=== PATIENT | male | born 1985 | race Caucasian/White ===

== ENCOUNTER 2020-07-23 08:06 | Outpatient (REF) | payer OTHER, SELFPAY ==
[2020-07-23 09:36] LABS: Alanine Aminotransferase 35 U/L (0-40); Albumin Level 4.2 g/dL (3.5-5.0); Alkaline Phosphatase 54 U/L (39-117); Anion Gap 13 (12-20); Aspartate Amino Transferase 25 U/L (5-37); Bilirubin Total 0.9 mg/dL (0.0-1.0); Blood Urea Nitrogen 24 mg/dL (9-16); Calcium 9.1 mg/dL (8.4-10.2); Carbon Dioxide 26 mmol/L (22-29); Chloride 106 mmol/L (96-108); Cholesterol 166 mg/dL; Estimated Glomerular Filt Rate > 60; Glucose Fasting 98 mg/dL (60-99); HDL Cholesterol 53 mg/dL; LDL Cholesterol Calculated 99 mg/dl; Potassium 4.7 mmol/L (3.3-5.1); Sodium 140 mmol/L (135-145); Total Protein 6.9 g/dL (6.5-8.0); Triglycerides 71 mg/dL
[2020-07-23 09:57] LABS: TSH reflex Free T4 1.04 uIU/mL (0.32-4.0)
== END 2020-07-23 08:07 | disposition home or self-care (01) ==
LOC: HO.LAB 08:06
PROVIDERS: Visit Provider Nurse Practitioner Family
DX: Z00.00 Encounter for general adult medical examination without abnormal findings (principal)
CPT/HCPCS: 36415; 80053; 80061; 84443

== ENCOUNTER 2021-07-29 09:27 | Outpatient (REF) | payer OTHER, SELFPAY ==
[2021-07-29 11:17] LABS: Appearance Urine CLEAR; Color Urine YELLOW; Glucose Urine UA NEG (NEG); Leukocyte Esterase Urine NEG (NEG); Nitrite Urine NEG (NEG); PH 6.5 (5.0-8.0); Specific Gravity - Urine 1.025 (1.005-1.025); Urine Blood NEG (NEG); Urine Ketones NEG (NEG); Urine Protein NEG (NEG-TRACE)
[2021-07-29 11:25] LABS: Alanine Aminotransferase 35 U/L (0-40); Albumin Level 4.3 g/dL (3.5-5.0); Alkaline Phosphatase 57 U/L (39-117); Anion Gap 10 (12-20); Aspartate Amino Transferase 23 U/L (5-37); Bilirubin Total 0.9 mg/dL (0.0-1.0); Blood Urea Nitrogen 16 mg/dL (9-16); Calcium 9.5 mg/dL (8.4-10.2); Carbon Dioxide 29 mmol/L (22-29); Chloride 107 mmol/L (96-108); Cholesterol 158 mg/dL; Estimated Glomerular Filt Rate > 60; Glucose Fasting 99 mg/dL (60-99); HDL Cholesterol 46 mg/dL; LDL Cholesterol Calculated 98 mg/dl; Potassium 4.2 mmol/L (3.3-5.1); Sodium 142 mmol/L (135-145); Total Protein 7.3 g/dL (6.5-8.0); Triglycerides 70 mg/dL
[2021-07-29 11:48] LABS: TSH reflex Free T4 1.04 uIU/mL (0.32-4.0)
== END 2021-07-29 09:28 | disposition home or self-care (01) ==
LOC: HO.HMGCLDS 09:27
PROVIDERS: Visit Provider Nurse Practitioner Family
DX: Z00.00 Encounter for general adult medical examination without abnormal findings (principal); Z13.220 Encounter for screening for lipoid disorders; Z13.9 Encounter for screening, unspecified
CPT/HCPCS: 36415; 80053; 80061; 81003; 84443

== ENCOUNTER 2022-02-17 10:52 | Outpatient (REF) | payer OTHER, SELFPAY ==
--- NOTE | ~2022-02-17 | XR_ITS ---
EXAMINATION: XR ANKLE, RIGHT CLINICAL INFORMATION: Right ankle sprain COMPARISON: February 16, 2020 TECHNIQUE: AP, lateral, and mortise views of the right ankle. FINDINGS: The bones and soft tissues are normal. No fracture. Alignment is anatomic. Joint spaces are maintained. No joint effusion. XR/XR ankle RT min 3V IMPRESSION: Normal right ankle.
== END 2022-02-17 10:53 | disposition home or self-care (01) ==
LOC: HO.HMGCX 10:52
PROVIDERS: PCP Nurse Practitioner Family; Visit Provider Physician Assistant Medical
DX: S96.911A Strain of unspecified muscle and tendon at ankle and foot level, right foot, initial encounter (principal); S93.401A Sprain of unspecified ligament of right ankle, initial encounter
CPT/HCPCS: 73610

== ENCOUNTER 2022-04-28 09:46 | Outpatient (REF) | payer OTHER, SELFPAY ==
[2022-04-28 11:10] LABS: MANUAL DIFF FLAG NO
[2022-04-28 11:18] LABS: Basophils Percent Auto 0.5 % (0-2); Eosinophils Absolute Auto 0.2 X10*3/uL (0.0-0.4); Eosinophils Percent Auto 2.5 % (0-4); Hematocrit 48.1 % (42.0-52.0); Hemoglobin 15.5 g/dl (14.0-18.0); Imm Gran Abs Auto 0.01 X10*3/uL (0.00-0.03); Imm Gran Pct Auto 0.2 % (0.0-0.4); Lymphocytes Absolute Auto 2.7 X10*3/uL (1.2-4.9); Lymphocytes Percent Auto 41.5 % (20-40); Mean Corpuscular HGB Conc 32.2 g/dl (31.0-36.0); Mean Corpuscular Hemoglobin 27.8 pg (27.0-33.0); Mean Corpuscular Volume 86.2 fL (80.0-98.0); Mean Platelet Volume 11.4 fL (9.4-12.4); Monocytes Absolute Auto 0.6 X10*3/uL (0.1-1.2); Neutrophils Percent Auto 46.3 % (45-73); Platelet Count 179 X10*3/uL (160-400); Red Blood Count 5.58 X10*6/uL (4.60-5.80); Red Cell Distribution Width 13.2 % (11.0-16.0); White Blood Count 6.4 X10*3/uL (4.8-10.8)
[2022-04-28 11:36] LABS: Alanine Aminotransferase 30 U/L (0-40); Albumin Level 3.9 g/dL (3.5-5.0); Alkaline Phosphatase 41 U/L (39-117); Anion Gap 12 (12-20); Aspartate Amino Transferase 24 U/L (5-37); Bilirubin Total 1.6 mg/dL (0.0-1.0); Blood Urea Nitrogen 16 mg/dL (9-16); Carbon Dioxide 27 mmol/L (22-29); Chloride 105 mmol/L (96-108); Cholesterol 156 mg/dL; Estimated Glomerular Filt Rate > 60; Glucose Fasting 86 mg/dL (60-99); HDL Cholesterol 62 mg/dL; LDL Cholesterol Calculated 82 mg/dl; Potassium 4.4 mmol/L (3.3-5.1); Sodium 140 mmol/L (135-145); Total Protein 6.5 g/dL (6.5-8.0); Triglycerides 62 mg/dL
[2022-04-28 11:37] LABS: Appearance Urine Clear; Color Urine Yellow; Glucose Urine UA Negative (Negative); Leukocyte Esterase Urine Negative (Negative); Nitrite Urine Negative (Negative); Specific Gravity - Urine 1.025 (1.005-1.025); Urine Blood Negative (Negative); Urine Ketones Negative (Negative); Urine Protein Negative (Neg-Trace)
[2022-04-28 11:59] LABS: TSH reflex Free T4 0.77 uIU/mL (0.32-4.0)
[2022-04-30 13:36] LABS: Transglutaminase IgA <1.0 U/mL
[2022-05-03 15:42] LABS: Endomysial IgA Antibody Negative (Negative)
== END 2022-04-28 09:47 | disposition home or self-care (01) ==
LOC: HO.HMGCLDS 09:46
PROVIDERS: PCP Nurse Practitioner Family; Visit Provider Nurse Practitioner Family
DX: R74.8 Abnormal levels of other serum enzymes (principal); R14.0 Abdominal distension (gaseous); R19.7 Diarrhea, unspecified
CPT/HCPCS: 36415; 80053; 80061; 81003; 84443; 85025; 86231; 86364

== ENCOUNTER 2022-10-13 09:22 | Outpatient (REF) | payer MEDICAID, SELFPAY ==
[2022-10-13 11:06] LABS: MANUAL DIFF FLAG NO
[2022-10-13 11:13] LABS: Basophils Percent Auto 0.5 % (0-2); Eosinophils Absolute Auto 0.2 X10*3/uL (0.0-0.4); Eosinophils Percent Auto 2.5 % (0-4); Hematocrit 54.1 % (42.0-52.0); Hemoglobin 16.8 g/dl (14.0-18.0); Imm Gran Abs Auto 0.02 X10*3/uL (0.00-0.03); Imm Gran Pct Auto 0.3 % (0.0-0.4); Lymphocytes Absolute Auto 1.8 X10*3/uL (1.2-4.9); Lymphocytes Percent Auto 29.9 % (20-40); Mean Corpuscular HGB Conc 31.1 g/dl (31.0-36.0); Mean Corpuscular Hemoglobin 28.5 pg (27.0-33.0); Mean Corpuscular Volume 91.7 fL (80.0-98.0); Mean Platelet Volume 10.9 fL (9.4-12.4); Monocytes Absolute Auto 0.6 X10*3/uL (0.1-1.2); Monocytes Percent Auto 9.8 % (2-11); Neutrophils Absolute Auto 3.4 x10*3/uL (2.0-8.3); Platelet Count 271 X10*3/uL (160-400); Red Cell Distribution Width 13.2 % (11.0-16.0); White Blood Count 5.9 X10*3/uL (4.8-10.8)
[2022-10-13 11:35] LABS: Alanine Aminotransferase 53 U/L (0-40); Albumin Level 3.8 g/dL (3.5-5.0); Alkaline Phosphatase 35 U/L (39-117); Anion Gap 11 (12-20); Aspartate Amino Transferase 41 U/L (5-37); Bilirubin Total 1.2 mg/dL (0.0-1.0); Blood Urea Nitrogen 11 mg/dL (9-16); Calcium 8.4 mg/dL (8.4-10.2); Carbon Dioxide 26 mmol/L (22-29); Chloride 106 mmol/L (96-108); Estimated Glomerular Filt Rate > 60; Glucose Random 87 mg/dL (60-115); Potassium 5.1 mmol/L (3.3-5.1); Sodium 138 mmol/L (135-145); Total Protein 6.1 g/dL (6.5-8.0)
[2022-10-13 11:55] LABS: TSH reflex Free T4 0.76 uIU/mL (0.32-4.0)
[2022-10-16 14:47] LABS: Transglutaminase Ab IgG <1.0 U/mL; Transglutaminase IgA <1.0 U/mL
[2022-10-20 11:33] LABS: Endomysial IgA Antibody Negative (Negative)
== END 2022-10-13 09:23 | disposition home or self-care (01) ==
LOC: HO.HMGCLDS 09:22
PROVIDERS: PCP Nurse Practitioner Family; Visit Provider Nurse Practitioner Family
DX: R14.0 Abdominal distension (gaseous) (principal)
CPT/HCPCS: 36415; 80053; 84443; 85025; 86231; 86364

== ENCOUNTER 2023-01-08 12:51 | Outpatient (AMB) | payer MEDICAID, SELFPAY ==
--- NOTE | 2023-01-08 13:36 | MHC.OFFWIV ---
Intake Vital Signs 01/08/23 13:40 BP 130/80 Blood Pressure Location Rt brachial Position Sitting Pulse 67 Pulse Source Pulse Oximeter Temp 97.8 F Temp Source Temporal Artery Scan Pulse Oximetry (%) 98 Oxygen Delivery Method Room Air Intake Visit Reasons: EST/left side pain Intake Note: Patient here for left sided pain for about 1 week. pt states it feels like a burning sensation. Patient Tobacco Use Status: Never used Tobacco Allergies penicillin V Allergy (Unknown, Verified 01/08/23 13:40) Rash Do you need a note to return to daycare/school/sports/work: Yes HPI EST/left side pain HPI Details 37-year-old male presents to the office for a sick visit. Patient is reporting symptoms of intermittent abdominal pain. Pain is mostly on the left side. No nausea or vomiting. Occasional belching. No fever or chills. PFSH Medical History Chronic SI joint pain Surgical History History of knee surgery History of wisdom tooth extraction Family History Father HTN (hypertension) Mother Diabetes mellitus Maternal Grandmother History of heart attack Maternal Grandfather Diabetes mellitus Paternal Grandfather Unknown family medical history Paternal Grandmother Unknown family medical history Paternal Uncle Cancer Brother No problems noted. Brother No problems noted. Son No problems noted. Social History Housing: House Alcohol intake: current Alcohol intake frequency: holidays/special occasions only Patient Tobacco Use Status: Never used Tobacco e-Cigarette/Vaping Use: Never Used Second Hand Smoke Exposure: No service: No Current occupational status: employed Current occupational exposures/hazards: No Cognitive needs: No Hearing needs: No Vision needs: No Physical Exam Vital Signs: Last Vital Signs Temp 97.8 F 01/08/23 13:40 Pulse 67 01/08/23 13:40 BP 130/80 01/08/23 13:40 Pulse Ox 98 01/08/23 13:40 Oxygen Delivery Method Room Air 01/08/23 13:40 Const General: cooperative and healthy appearing Nutritional Appearance: well nourished Orientation/consciousness: patient oriented x3 Limitations: no limitations HEENT Head: Yes normal to inspection Eyes General: appearance normal, both eyes and all related structures Neck Neck: Yes normal visual inspection Chest Chest palpation & inspection: normal palpation of entire chest wall Resp Effort & Inspection: normal respiratory effort Neuro General: patient oriented x3 Assessment & Plan Assessment & Plan (1) Abdominal pain: Code(s): R10.9 - Unspecified abdominal pain Plan: Trial of PPI given. If symptoms do not improve to follow-up here. Coding Level of Care Code Est Pt Level 3 (34987) Diagnoses Abdominal pain R10.9
[2023-01-08 13:40] VITALS: BP 130/80; PULSE 67; TEMP 36.6; O2SAT 98
== END 2023-01-08 14:04 | disposition home or self-care (01) ==
PROVIDERS: PCP Nurse Practitioner Family; Visit Provider Internal Medicine
DX: R10.9 Unspecified abdominal pain (principal)
CPT/HCPCS: 99213

== ENCOUNTER 2023-02-12 15:16 | Outpatient (AMB) | payer MEDICAID, SELFPAY ==
[2023-02-12 15:22] VITALS: BP 136/88; PULSE 62; O2SAT 97; BMI 33.3
--- NOTE | 2023-02-12 15:22 | A.OFFPC_ITS ---
Vital Signs 02/12/23 15:22 Height 5 ft 9 in Weight 225 lb 8 oz BMI 33.3 BP 136/88 Blood Pressure Location Lt brachial Position Sitting Pulse 62 Pulse Source Pulse Oximeter Pulse Oximetry (%) 97 Oxygen Delivery Method Room Air Intake Visit Reasons: 4 month follow-up Allergies penicillin V Allergy (Unknown, Verified 02/12/23 15:24) Rash Medication List - Last Reconciled 02/12/23 by NICHO Barahona cholecalciferol (vitamin D3) 50 mcg PO DAILY omega-3 fatty acids (Fish Oil Concentrate) 1,000 mg PO DAILY Tobacco use date assessed: 10/11/22 Dental Screening Dental Screen Date: 02/12/23 Did you have a dental visit in the last 12 months?: Yes Did you have a dental problem in the last 6 months where you did not have access to dental care?: No Was dental information given to patient?: Patient has dentist HPI 4 month follow-up HPI Details Pt's liver enzymes were noted to be elevated. Pt was taking pre-workout which he has stopped. Will order US and hepatitis screen. Denies fever, chills, and abdominal pain. [facility] Medical History Chronic SI joint pain Surgical History History of knee surgery History of wisdom tooth extraction Family History Father HTN (hypertension) Mother Diabetes mellitus Maternal Grandmother History of heart attack Maternal Grandfather Diabetes mellitus Paternal Grandfather Unknown family medical history Paternal Grandmother Unknown family medical history Paternal Uncle Cancer Brother No problems noted. Brother No problems noted. Son No problems noted. Social History Housing: House Alcohol intake: current Alcohol intake frequency: holidays/special occasions only Patient Tobacco Use Status: Never used Tobacco e-Cigarette/Vaping Use: Never Used Second Hand Smoke Exposure: No service: No Current occupational status: employed Current occupational exposures/hazards: No Cognitive needs: No Hearing needs: No Vision needs: No Questionnaire Thrive Questionnaire Date Thrive assessed: 07/24/21 ZAHIDA-7 AMB Questionnaire ZAHIDA-7 Date ZAHIDA - 7 assessed: 07/24/21 Source: Developed by Drs. Tristan Beard, Gabriela Urbano, Rajat Neumann and colleagues, with an educational karishma from [employer]. Review of Systems Const Reports as per HPI Physical exam (Primary Care) Vital Signs: Last Vital Signs Pulse 62 02/12/23 15:22 BP 136/88 02/12/23 15:22 Pulse Ox 97 02/12/23 15:22 Oxygen Delivery Method Room Air 02/12/23 15:22 BMI result Body Mass Index 33.3 Tobacco/Smoking Status: Tobacco use Status Tobacco use date assessed 10/11/22 02/12/23 15:26 Patient Tobacco Use Status Never used Tobacco 02/12/23 15:26 e-Cigarette/Vaping Use Never Used 02/12/23 15:26 Thrive Assessment: Date of Thrive Assessment Date Thrive assessed 07/24/21 02/12/23 15:26 Const General: cooperative Nutritional Appearance: obese Orientation/consciousness: patient oriented x3 Resp Effort & Inspection: normal respiratory effort Auscultation: clear to auscultation bilaterally Cardio Rate: regular rate Rhythm: regular rhythm Heart sounds: S1 normal heart sound present, S2 normal heart sound present and no murmurs GI Inspection: Yes normal to inspection Palpation (GI): Soft to palpation, nontender and no guarding Auscultation: normal bowel sounds Neuro General: patient oriented x3 Psych Appearance: grossly normal Mental Status: mental status grossly normal Speech and movement: Normal speech and movement present Affect: normal affect Attitude: cooperative Thought process: Normal thought process present Thought content: Normal thought content present Insight: Good insight present (Psych) Judgement: Good judgement present (Psych) Assessment and Plan Assessment & Plan (1) Elevated liver enzymes: Code(s): R74.8 - Abnormal levels of other serum enzymes Plan: Labs and US ordered Plan The patient agreed to the use of a certified medical coder for this encounter. Scribed for NICHO Lozoya by Fannie Richardson certified medical coder, on 02/12/2023 at 15:35 EST. Orders: Orders Comprehensive Met. Panel Today R74.8 - Abnormal levels of other serum enzymes Hepatitis A,B,C Profile Today R74.8 - Abnormal levels of other serum enzymes US abdomen complete Today R74.8 - Abnormal levels of other serum enzymes Coding Level of Care Code Est Pt Level 3 (23587) Diagnoses Elevated liver enzymes R74.8
== END 2023-02-12 16:33 | disposition home or self-care (01) ==
PROVIDERS: Visit Provider Nurse Practitioner Family
DX: R74.8 Abnormal levels of other serum enzymes (principal)
CPT/HCPCS: 99213

== ENCOUNTER 2023-03-05 09:59 | Outpatient (REF) | payer MEDICAID, SELFPAY ==
--- NOTE | ~2023-03-05 | US_ITS ---
EXAMINATION: US ABDOMEN COMPLETE CLINICAL INFORMATION: Elevated liver enzymes. COMPARISON: Ultrasound abdomen 04/07/2018 and 03/29/2017. TECHNIQUE: Real-time imaging of the abdominal viscera. FINDINGS: PANCREAS: Normal. ABDOMINAL AORTA: The proximal, mid, and distal segments are normal in caliber. INFERIOR VENA CAVA: Visualized portions are normal. LIVER: Normal. The liver is normal in size. The liver contour is normal. Parenchymal echogenicity is normal. No focal hepatic lesion. There is no intrahepatic biliary duct dilatation seen. GALLBLADDER: Surgically absent. COMMON BILE DUCT: Normal in caliber measuring 0.4 cm in diameter. RIGHT KIDNEY: Normal. No hydronephrosis. No renal calculi or focal parenchymal lesions. The kidney measures 13.0 cm in maximum dimension. LEFT KIDNEY: Normal. No hydronephrosis. No renal calculi or focal parenchymal lesions. The kidney measures 11.5 cm in maximum dimension. SPLEEN: Normal. The spleen measures 12.1 cm in maximum dimension. FREE FLUID: None. US/US abdomen complete IMPRESSION: Normal exam. The gallbladder has been surgically removed.
[2023-03-05 14:00] LABS: Alanine Aminotransferase 35 U/L (0-40); Alkaline Phosphatase 42 U/L (39-117); Anion Gap 8 (12-20); Aspartate Amino Transferase 26 U/L (5-37); Bilirubin Total 1.1 mg/dL (0.0-1.0); Blood Urea Nitrogen 12 mg/dL (9-16); Calcium 9.5 mg/dL (8.4-10.2); Carbon Dioxide 29 mmol/L (22-29); Chloride 106 mmol/L (96-108); Estimated Glomerular Filt Rate > 60; Glucose Random 85 mg/dL (60-115); Potassium 4.4 mmol/L (3.3-5.1); Sodium 139 mmol/L (135-145)
[2023-03-06 04:16] LABS: HBS Num1 16.31 mIU/mL (0-7.99); HBc Num1 0.06 S/CO (0.00-0.79); HBsAGNum1 0.29 S/CO (0.00-0.99); Hepatitis A Antibody IgM 0.16 Index (0-0.79); Hepatitis B Core Antibody Nonreactive (Nonreactive); Hepatitis B Surface Antigen Negative (Negative); ~HepC Num1 0.06 S/CO (0.00-0.79); ~Hepatitis A Antibody IgM Nonreactive (Nonreactive); ~Hepatitis B Surface Antibody REACTIVE (Nonreactive); ~Hepatitis C Antibody Nonreactive (Nonreactive)
== END 2023-03-05 10:00 | disposition home or self-care (01) ==
LOC: HO.HMGCX 09:59
PROVIDERS: PCP Nurse Practitioner Family; Visit Provider Nurse Practitioner Family
DX: R74.8 Abnormal levels of other serum enzymes (principal)
CPT/HCPCS: 36415; 76700; 80053; 86704; 86706; 86709; 86803; 87340

== ENCOUNTER 2024-01-14 09:08 | Outpatient (AMB) | payer MEDICAID, SELFPAY ==
--- NOTE | 2024-01-14 09:11 | A.OFFPC_ITS ---
Vital Signs 01/14/24 09:16 Height 5 ft 9 in Weight 240 lb BMI 35.4 BP 126/82 Blood Pressure Location Rt brachial Position Sitting Pulse 61 Pulse Source Pulse Oximeter Pulse Oximetry (%) 97 Oxygen Delivery Method Room Air Intake Visit Reasons: Annual PE Intake Note: Patient here for physical exam. Allergies penicillin V Allergy (Unknown, Verified 01/14/24 09:16) Rash Tobacco use date assessed: 01/14/24 Dental Screening Dental Screen Date: 02/12/23 HPI Annual PE HPI Details Pt is here for a PE. Will order labs. PFSH Medical History Chronic SI joint pain Surgical History History of knee surgery History of wisdom tooth extraction Family History Father HTN (hypertension) Mother Diabetes mellitus Maternal Grandmother History of heart attack Maternal Grandfather Diabetes mellitus Paternal Grandfather Unknown family medical history Paternal Grandmother Unknown family medical history Paternal Uncle Cancer Brother No problems noted. Brother No problems noted. Son No problems noted. Social History Housing: House Alcohol intake: current Alcohol intake frequency: holidays/special occasions only Patient Tobacco Use Status: Never used Tobacco e-Cigarette/Vaping Use: Never Used Second Hand Smoke Exposure: No service: No Current occupational status: employed Current occupational exposures/hazards: No Cognitive needs: No Hearing needs: No Vision needs: No Questionnaire PHQ-9 Over the last 2 weeks, how often have you been bothered by any of the following problems? 1. Little interest or pleasure in doing things: not at all 2. Feeling down, depressed, or hopeless: not at all 3. Trouble falling or staying asleep, or sleeping too much: not at all 4. Feeling tired or having little energy: not at all 5. Poor appetite or overeating: not at all 6. Feeling bad about yourself - or that you are a failure or have let yourself or your family down: not at all 7. Trouble concentrating on things, such as reading the newspaper or watching television: not at all 8. Moving or speaking so slowly that other people could have noticed. Or the opposite - being so fidgety or restless that you have been moving around a lot more than usual: not at all 9. Thoughts that you would be better off or of hurting yourself in some way: not at all Total score: 0 Depression Screening Interpretation: Negative Depression Screening Done: Yes 11618 - PHQ-9 Billing: Yes Source: Developed by Drs. Tristan Beard, Gabriela Urbano, Rajat Neumann and colleagues, with an educational karishma from [employer]. Thrive Questionnaire Date Thrive assessed: 01/14/24 I am a: Patient What is your living situation today?: I have a steady place to live Within the past 12 months, did the food you bought not last and you didn't have the money to get more?: Never true Within the past 12 months, did you worry whether your food would run out before you got money to buy more?: Never true Do you have trouble paying for medicines?: No Do you have trouble getting transportation to medical appointments?: No Do you have trouble paying your heating and electricity bill?: No Do you have trouble taking care of your child, family member or friend?: No Do you have trouble with day-to-day activities such as bathing, preparing meals, shopping, managing finances, etc.?: No Are you currently unemployed and looking for a job?: No Are you interested in more education?: No Please select the resources that you would like help with: Housing/Jail Currently or been in a relationship where the following occur: No concerns reported THRIVE Score: 0 AUDIT C Alcohol Use Questionnaire (AUDIT-C) 1. How often do you have a drink containing alcohol?: Monthly or less 2. How many drinks containing alcohol do you have on a typical day when you are drinking?: 1 or 2 3. How often do you have six or more drinks on one occasion?: Less than monthly Total Score: 2 ZAHIDA-7 AMB Questionnaire ZAHIDA-7 Date ZAHIDA - 7 assessed: 01/14/24 Feeling nervous, anxious, or on edge: 0 = Not at all Not being able to stop or control worryin = Not at all Worrying too much about different things: 0 = Not at all Trouble relaxin = Not at all Being so restless that it is hard to sit still: 0 = Not at all Becoming easily annoyed or irritable: 0 = Not at all Feeling afraid as if something awful might happen: 0 = Not at all Total ZAHIDA-7 score (0-4 normal; 5-9 mild; 10-14 moderate; 15-21 severe): 0 Source: Developed by Drs. Tristan Beard, Gabriela Urbano, Rajat Neumann and colleagues, with an educational karishma from [employer]. ZAHIDA-7 Assessment Billing ZAHIDA-7 Assessment Tool: ZAHIDA-7 Assessment 72730 Review of Systems Const Denies chills and Denies fever(s) Eyes Denies blurry vision ENT Denies vertigo, Denies dizziness and Denies sore throat Card Denies chest pain at rest, Denies chest pain with activity, Denies diaphoresis, Denies dyspnea and Denies dyspnea on exertion Resp Denies cough, Denies dyspnea, Denies dyspnea on exertion and Denies wheezing GI Denies abdominal pain, Denies melena, Denies hematochezia, Denies constipation, Denies diarrhea and Denies loose stools Denies hematuria Musc Denies numbness and Denies tingling Skin/Breast Denies lesions Neuro Denies vertigo, Denies dizziness, Denies numbness and Denies tingling Psych Denies anxiety, Denies depression, Denies homicidal ideation, Denies suicidal ideation and Denies other (substance abuse) Aller/Immun Denies wheezing Physical exam (Primary Care) Vital Signs: Last Vital Signs Pulse 61 01/14/24 09:16 BP 126/82 01/14/24 09:16 Pulse Ox 97 01/14/24 09:16 Oxygen Delivery Method Room Air 01/14/24 09:16 BMI result Body Mass Index 35.4 Tobacco/Smoking Status: Tobacco use Status Tobacco use date assessed 01/14/24 01/14/24 09:15 Patient Tobacco Use Status Never used Tobacco 01/14/24 09:15 e-Cigarette/Vaping Use Never Used 01/14/24 09:15 PHQ-9: PHQ-9 Score PHQ-9: Total score 0 01/14/24 09:25 Depression Screening Interpretation: Negative Thrive Assessment: Date of Thrive Assessment Date Thrive assessed 01/14/24 01/14/24 09:15 Currently or been in a relationship where the following occur: No concerns reported Const General: cooperative Nutritional Appearance: well nourished Orientation/consciousness: patient oriented x3 HENMT Head: Yes normal to inspection, Yes normocephalic and Yes atraumatic Ears: TM's normal bilaterally Eyes General: appearance normal, both eyes and all related structures Alignment and Position: alignment normal and position normal Neck Neck: Yes normal visual inspection and Yes no lymphadenopathy Thyroid: Thyroid normal Resp Effort & Inspection: normal respiratory effort Auscultation: clear to auscultation bilaterally Cardio Rate: regular rate Rhythm: regular rhythm Heart sounds: S1 normal heart sound present, S2 normal heart sound present and no murmurs GI Palpation (GI): Soft to palpation and nontender Auscultation: normal bowel sounds Male General Exam: Yes normal external exam Penis: normal penis Scrotum: scrotum normal, testes descended bilaterally and no inguinal hernias Testes: no testicular mass Skin Rashes: no rashes Neuro General: patient oriented x3, moves all extremities, no focal motor deficits and deep tendon reflexes 2+ bilaterally Romberg Test: Negative Psych Appearance: grossly normal Mental Status: mental status grossly normal Speech and movement: Normal speech and movement present Affect: normal affect Attitude: cooperative Thought process: Normal thought process present Thought content: Normal thought content present Insight: Good insight present (Psych) Judgement: Good judgement present (Psych) Assessment and Plan Assessment & Plan (1) Physical exam: Code(s): Z00.00 - Encounter for general adult medical examination without abnormal findings Plan: Labs ordered (2) Weight gain: Code(s): R63.5 - Abnormal weight gain Plan: will check T level. Pt reports loss of muscle tone as well. Plan The patient agreed to the use of a director of graduate medical education for this encounter. Scribed for NICHO Lozoya by Fannie Richardson director of graduate medical education, on 01/14/2024 at 09:25 EST. Orders: Orders Comprehensive [place]. Panel Fast Today Z00.00 - Encounter for general adult medical examination without abnormal findings Testosterone, Free/Total Today R63.5 - Abnormal weight gain Complete Blood Count Auto Diff Today Z00.00 - Encounter for general adult medical examination without abnormal findings TSH reflex Free T4 Today Z00.00 - Encounter for general adult medical examination without abnormal findings UA CC w/rflx Micro + Cult Today Z00.00 - Encounter for general adult medical examination without abnormal findings Lipid Panel Today Z00.00 - Encounter for general adult medical examination without abnormal findings Coding Level of Care Code Est Pt Prev Care 40-64y(73886) Diagnoses Physical exam Z00.00 Weight gain R63.5 Additional Codes ZAHIDA-7 Assessment Billing - ZAHIDA-7 Assessment Tool: ZAHIDA-7 Assessment [id number] ([id number])
[2024-01-14 09:16] VITALS: BP 126/82; PULSE 61; O2SAT 97; BMI 35.4
== END 2024-01-14 09:34 | disposition home or self-care (01) ==
PROVIDERS: PCP Nurse Practitioner Family; Visit Provider Nurse Practitioner Family
DX: Z00.00 Encounter for general adult medical examination without abnormal findings (principal); R63.5 Abnormal weight gain
CPT/HCPCS: 99396

== ENCOUNTER 2024-01-14 09:36 | Outpatient (REF) | payer MEDICAID, SELFPAY ==
[2024-01-14 13:10] LABS: Appearance Urine Clear; Color Urine Yellow; Glucose Urine UA Negative (Negative); Leukocyte Esterase Urine Negative (Negative); Nitrite Urine Negative (Negative); PH 5.5 (5.0-9.0); Urine Blood Negative (Negative); Urine Ketones Negative (Negative); Urine Protein Negative (Neg-Trace)
[2024-01-14 13:14] LABS: MANUAL DIFF FLAG NO
[2024-01-14 13:24] LABS: Basophils Percent Auto 0.6 % (0-2); Eosinophils Absolute Auto 0.6 X10*3/uL (0.0-0.4); Eosinophils Percent Auto 9.1 % (0-4); Hematocrit 53.9 % (42.0-52.0); Hemoglobin 17.3 g/dl (14.0-18.0); Imm Gran Abs Auto 0.02 X10*3/uL (0.00-0.03); Imm Gran Pct Auto 0.3 % (0.0-0.4); Lymphocytes Absolute Auto 2.6 X10*3/uL (1.2-4.9); Lymphocytes Percent Auto 36.6 % (20-40); Mean Corpuscular HGB Conc 32.1 g/dl (31.0-36.0); Mean Corpuscular Hemoglobin 27.5 pg (27.0-33.0); Mean Corpuscular Volume 85.6 fL (80.0-98.0); Mean Platelet Volume 11.5 fL (9.4-12.4); Monocytes Absolute Auto 0.7 X10*3/uL (0.1-1.2); Monocytes Percent Auto 9.6 % (2-11); Neutrophils Absolute Auto 3.1 x10*3/uL (2.0-8.3); Neutrophils Percent Auto 43.8 % (45-73); Platelet Count 208 X10*3/uL (160-400); Red Cell Distribution Width 13.1 % (11.0-16.0); White Blood Count 7.1 X10*3/uL (4.8-10.8)
[2024-01-14 13:35] LABS: Alanine Aminotransferase 35 U/L (0-40); Albumin Level 4.2 g/dL (3.5-5.0); Alkaline Phosphatase 51 U/L (39-117); Anion Gap 14 (12-20); Aspartate Amino Transferase 32 U/L (5-37); Bilirubin Total 0.8 mg/dL (0.0-1.0); Blood Urea Nitrogen 18 mg/dL (9-16); Calcium 9.9 mg/dL (8.4-10.2); Carbon Dioxide 24 mmol/L (22-29); Chloride 105 mmol/L (96-108); Cholesterol 156 mg/dL (<200); Estimated Glomerular Filt Rate > 60; Glucose Fasting 97 mg/dL (60-99); HDL Cholesterol 55 mg/dL (>40); LDL Cholesterol Calculated 90 mg/dL (<100); Potassium 4.5 mmol/L (3.3-5.1); Sodium 138 mmol/L (135-145); Total Protein 7.4 g/dL (6.5-8.0); Triglycerides 57 mg/dL (<150)
[2024-01-14 14:25] LABS: TSH reflex Free T4 1.66 uIU/mL (0.32-4.0)
[2024-01-19 14:23] LABS: Testosterone, Free 18.9 pg/mL (35.0-155.0); Testosterone, Total 173 ng/dL (250-1100)
== END 2024-01-14 09:37 | disposition home or self-care (01) ==
LOC: HO.HMGCLDS 09:36
PROVIDERS: PCP Nurse Practitioner Family; Visit Provider Nurse Practitioner Family
DX: Z00.00 Encounter for general adult medical examination without abnormal findings (principal); R63.5 Abnormal weight gain
CPT/HCPCS: 36415; 80053; 80061; 81003; 84402; 84403; 84443; 85025

== ENCOUNTER 2024-03-18 15:03 | Outpatient (AMB) | payer OTHER, SELFPAY ==
--- NOTE | 2024-03-18 15:05 | MHC.OFFVIS ---
Intake Visit Reasons: low testosterone Intake Note: New Patient presents for initial visit for low testosterone Urology Medications: none Blood Thinner: none Malware Analyst Required: No Accompanied by: Self / Same As Patient Allergies penicillin V Allergy (Unknown, Verified 03/18/24 15:32) Rash Medication List - Last Reconciled 03/18/24 by NICHO Scott cholecalciferol (vitamin D3) 50 mcg PO DAILY omega-3 fatty acids (Fish Oil Concentrate) 1,000 mg PO DAILY HPI Comments Details: Seng is a very pleasant 38-year-old male patient of . He has a past medical history of chronic SI joint pain. He presents to the office today as a new patient for hypogonadism. In discussion with the patient today he reports following up with his PCP for ongoing fatigue he has been experiencing at which time testosterone was ordered and performed and noted to be low therefore urology referral was made for further assessment evaluation. These results reviewed with the patient today. Testosterone: 01/14 173 Free testosterone: 01/14 18.9 When asked he does report a previous history of anabolic steroid use in the past. He otherwise denies any bothersome urinary issues. He denies urinary urgency, urinary frequency, incontinence, nocturia, hematuria, dysuria, foul smelling urine, changes to urinary stream, flank pain, fever, and or chills. He is happy with his current voiding parameters. In office urinalysis results reviewed with the patient today. We discussed at length potential causes of hypogonadism in the setting of previous anabolic steroid use. Discussed obtaining further labs. He otherwise denies any bothersome urinary issues or concerns. [facility] Medical History Chronic SI joint pain Surgical History History of knee surgery History of wisdom tooth extraction Family History Father HTN (hypertension) Mother Diabetes mellitus Maternal Grandmother History of heart attack Maternal Grandfather Diabetes mellitus Paternal Grandfather Unknown family medical history Paternal Grandmother Unknown family medical history Paternal Uncle Cancer Brother No problems noted. Brother No problems noted. Son No problems noted. Social History Housing: House Alcohol intake: current Alcohol intake frequency: holidays/special occasions only Patient Tobacco Use Status: Never used Tobacco e-Cigarette/Vaping Use: Never Used Second Hand Smoke Exposure: No service: No Current occupational status: employed Current occupational exposures/hazards: No Cognitive needs: No Hearing needs: No Vision needs: No Review of Systems Const All systems reviewed & are unremarkable except as noted in HPI and below Physical Exam Const General: cooperative, healthy appearing, comfortable, no acute distress, well developed, alert and awake Orientation/consciousness: patient oriented x3 Limitations: no limitations HEENT Head: Yes normal to inspection, Yes normocephalic and Yes atraumatic Ears: hearing grossly normal bilaterally Eyes General: appearance normal, both eyes and all related structures Neck Neck: Yes normal visual inspection and Yes trachea midline Chest Chest palpation & inspection: normal inspection of the chest Resp Effort & Inspection: normal respiratory effort and able to speak in complete sentences Cardio Rate: regular rate GI Inspection: Yes normal to inspection General: Yes no CVA tenderness Back/Spine/Pelvis Back: no CVA tenderness Skin General skin exam: no rashes or lesions noted Neuro General: patient oriented x3 Extrem General: Yes normal to inspection Psych Appearance: grossly normal and well kempt Mental Status: mental status grossly normal Speech and movement: Normal speech and movement present and Clear speech present Affect: normal affect Attitude: cooperative Thought process: Normal thought process present Thought content: Normal thought content present Insight: Fair insight present (Psych) Judgement: Fair judgement present (Psych) Results AMB Urinalysis, Automated UA Leukoctes 0 Balaji/uL Last Edit by Chioma Clement on 03/18/24 15:22 UA Nitrite Negative Last Edit by [email or web address] on 03/18/24 15:22 UA Urobilinogen 0.2 mg/dL Last Edit by [employer] Racquel on 03/18/24 15:22 UA Protein 0 mg/dL Last Edit by [employer] Clement on 03/18/24 15:22 UA pH 6.0 Last Edit by [employer] Clement on 03/18/24 15:22 UA Blood 0 Blue/uL Last Edit by [employer] Racquel on 03/18/24 15:22 UA Specific [place] 1.025 Last Edit by Brandjovi Clement on 03/18/24 15:22 UA Ketone Negative Last Edit by Vicentetristantreasure Roekranthi on 03/18/24 15:22 UA Bilirubin 0 mg/dL Last Edit by [employer]re[employer] Roekranthi on 03/18/24 15:22 UA Glucose 0 mg/dL Last Edit by [employer]ent[employer]re[employer] Roekranthi on 03/18/24 15:22 Results Reviewed Results Reviewed: Laboratory Last Values Urine pH (Auto) 6.0 03/18/24 15:16 Specific [place] (Auto) 1.025 03/18/24 15:16 Urine Protein (Auto) 0 mg/dL 03/18/24 15:16 Glucose (UA)(Auto) 0 mg/dL 03/18/24 15:16 Urine Ketones (Auto) Negative 03/18/24 15:16 Urine Blood (Auto) 0 Blue/uL 03/18/24 15:16 Urine Nitrite (Auto) Negative 03/18/24 15:16 Urine Bilirubin (Auto) 0 mg/dL 03/18/24 15:16 Urine Urobilinogen (Auto) 0.2 mg/dL 03/18/24 15:16 Leukocyte Esterase (Auto) 0 Balaji/uL 03/18/24 15:16 Assessment & Plan Assessment & Plan (1) Low testosterone: Code(s): R79.89 - Other specified abnormal findings of blood chemistry Category: Medical Plan In office urinalysis results reviewed with the patient today; as noted above. We discussed at length potential causes of hypogondism. Previous testosterone results reviewed with the patient today; as noted above. Discussed obtaining FSH, LH, estradiol, prolactin, PSA, SHBG, and testosterone free and total for further assessment evaluation. He otherwise denies any bothersome urinary issues or concerns. He reports be happy with current voiding parameters. Follow-up in 1-3 months with labs to be completed prior; or sooner with any issues, concerns, and or questions. Orders: Orders AMB Urinalysis Automated Today Z13.9 - Encounter for screening, unspecified Lutenizing Hormone Today R79.89 - Other specified abnormal findings of blood chemistry Prolactin Today R79.89 - Other specified abnormal findings of blood chemistry Sex Hormone Binding Globulin Today R79.89 - Other specified abnormal findings of blood chemistry PSA,Total (Free>4and<10) Today R79.89 - Other specified abnormal findings of blood chemistry Follicle Stimulating Hormone Today R79.89 - Other specified abnormal findings of blood chemistry Estradiol Ultra Sensitive Today R79.89 - Other specified abnormal findings of blood chemistry Testosterone, Free/Total Today R79.89 - Other specified abnormal findings of blood chemistry Patient Instructions: The patient had an opportunity to ask questions regarding the treatment plan. All questions were answered. Physical exam, labs, and imaging were discussed and reviewed in detail. As well as risks, benefits, and discussion of treatment choices. No major barriers to understanding were identified. The patient expressed understanding and agreement with the above treatment plan. The patient was made aware they should contact our office by phone for worsening of their current condition, the appearance of new symptoms, or with any questions or concerns. Compliance is encouraged with any medications and follow up testing that is ordered. It is a privilege to be allowed the opportunity to participate in? your urological care.? Again, if you have any questions or concerns If you have any questions or concerns please do not hesitate to contact me. The office is [phone]. This note is constructed using voice recognition software. While every effort has been made to ensure accuracy port warden errors may have been included. Yours sincerely, NICHO Scott Coding Level of Care Code New Pt Level 3 (97140) Diagnoses Low testosterone R79.89
== END 2024-03-18 15:33 | disposition home or self-care (01) ==
PROVIDERS: PCP Nurse Practitioner Family; Visit Provider Nurse Practitioner Family
DX: R79.89 Other specified abnormal findings of blood chemistry (principal); Z13.9 Encounter for screening, unspecified
CPT/HCPCS: 99203

== ENCOUNTER → 2024-03-18 15:03 | Outpatient (BNVA) | payer OTHER, SELFPAY | PROVIDERS: PCP Nurse Practitioner Family; Visit Provider Nurse Practitioner Family | DX: R79.89 Other specified abnormal findings of blood chemistry (principal) | CPT/HCPCS: 81003; 99202 ==

== ENCOUNTER 2024-03-21 09:13 | Outpatient (REF) | payer OTHER, SELFPAY ==
[2024-03-21 12:04] LABS: PSA,Total (Free>4and<10) 0.56 ng/mL (0.00-4.00)
[2024-03-22 13:39] LABS: Follicle Stimulating Hormone 22.7 mIU/mL (1.4-12.8); Lutenizing Hormone 10.7 mIU/mL (1.5-9.3); Prolactin 7.3 ng/mL (2.0-18.0); Sex Hormone Binding Globulin 39 nmol/L (10-50)
[2024-03-29 00:09] LABS: Estradiol Ultra Sensitive 18 pg/mL (< OR = 29)
[2024-04-10 22:29] LABS: Testosterone, Free 50.4 pg/mL (35.0-155.0); Testosterone, Total 313 ng/dL (250-1100)
== END 2024-03-21 09:14 | disposition home or self-care (01) ==
LOC: HO.HMGCLDS 09:13
PROVIDERS: PCP Nurse Practitioner Family; Visit Provider Nurse Practitioner Family
DX: R79.89 Other specified abnormal findings of blood chemistry (principal)
CPT/HCPCS: 36415; 82670; 83001; 83002; 84146; 84153; 84270; 84402; 84403

== ENCOUNTER 2024-05-12 15:50 | Outpatient (AMB) | payer OTHER, SELFPAY ==
--- NOTE | 2024-05-12 15:59 | A.OFFVIS_ITS ---
Intake Visit Reasons: 2m/labs Intake Note: Patient presents today for follow up on: low testosterone and lab results Testosterone: 313; Free Testosterone: 50.4; PSA: 0.56 Urology Medications: none Blood Thinner: none Stereo Map Plotter Operator Required: No Accompanied by: Self / Same As Patient Allergies penicillin V Allergy (Unknown, Verified 05/12/24 16:31) Rash Medication List - Last Reconciled 05/12/24 by NICHO Scott cholecalciferol (vitamin D3) 50 mcg PO DAILY omega-3 fatty acids (Fish Oil Concentrate) 1,000 mg PO DAILY HPI Comments Details: Seng is a very pleasant 38-year-old male patient of . He has a past medical history of chronic SI joint pain. He presents to the office today for follow-up. Of note, patient was seen approximately 2 months ago as a new patient for hypogonadism at which time labs were ordered for further assessment evaluation. These results were reviewed with the patient today as noted and trended below. He continues to report fatigue. Testosterone: 01/14 173, 03/17 313 Free testosterone: 01/14 18.9, 03/17 50.4 Estradiol: 03/17 18 LH: 03/17 10.7 FSH: 03/17 22.7 Prolactin 03/17 7.3 SHB/24 39 When asked he does report a previous history of anabolic steroid use in the past. He otherwise denies any bothersome urinary issues. He denies urinary urgency, urinary frequency, incontinence, nocturia, hematuria, dysuria, foul smelling urine, changes to urinary stream, flank pain, fever, and or chills. He is happy with his current voiding parameters. In office urinalysis results reviewed with the patient today. We discussed at length potential causes of hypogonadism in the setting of previous anabolic steroid use. Discussed trial of low-dose Cialis. He otherwise denies any bothersome urinary issues or concerns. PFSH Medical History Chronic SI joint pain Surgical History History of knee surgery History of wisdom tooth extraction Family History Father HTN (hypertension) Mother Diabetes mellitus Maternal Grandmother History of heart attack Maternal Grandfather Diabetes mellitus Paternal Grandfather Unknown family medical history Paternal Grandmother Unknown family medical history Paternal Uncle Cancer Brother No problems noted. Brother No problems noted. Son No problems noted. Social History Housing: House Alcohol intake: current Alcohol intake frequency: holidays/special occasions only Patient Tobacco Use Status: Never used Tobacco e-Cigarette/Vaping Use: Never Used Second Hand Smoke Exposure: No service: No Current occupational status: employed Current occupational exposures/hazards: No Cognitive needs: No Hearing needs: No Vision needs: No Review of Systems Const All systems reviewed & are unremarkable except as noted in HPI and below Physical Exam Const General: cooperative, healthy appearing, comfortable, no acute distress, well developed, alert and awake Orientation/consciousness: patient oriented x3 Limitations: no limitations HEENT Head: Yes normal to inspection, Yes normocephalic and Yes atraumatic Ears: hearing grossly normal bilaterally Eyes General: appearance normal, both eyes and all related structures Neck Neck: Yes normal visual inspection and Yes trachea midline Chest Chest palpation & inspection: normal inspection of the chest Resp Effort & Inspection: normal respiratory effort and able to speak in complete sentences Cardio Rate: regular rate GI Inspection: Yes normal to inspection General: Yes no CVA tenderness Back/Spine/Pelvis Back: no CVA tenderness Skin General skin exam: no rashes or lesions noted Neuro General: patient oriented x3 Extrem General: Yes normal to inspection Psych Appearance: grossly normal and well kempt Mental Status: mental status grossly normal Speech and movement: Normal speech and movement present and Clear speech present Affect: normal affect Attitude: cooperative Thought process: Normal thought process present Thought content: Normal thought content present Insight: Fair insight present (Psych) Judgement: Fair judgement present (Psych) Results AMB Urinalysis, Automated UA Leukoctes 0 Balaji/uL Last Edit by Chioma Clement on 05/12/24 16:18 UA Nitrite Last Edit by [employer] TVkranthi on 05/12/24 16:18 UA Urobilinogen 0.2 mg/dL Last Edit by Chioma Clement on 05/12/24 16:18 UA Protein 0 mg/dL Last Edit by Chioma Clement on 05/12/24 16:18 UA pH 6.0 Last Edit by [employer] TVkranthi on 05/12/24 16:18 UA Blood 0 Blue/uL Last Edit by [employer] TVkranthi on 05/12/24 16:18 UA Specific [place] 1.030 Last Edit by Mopiokranthi on 05/12/24 16:18 UA Ketone Last Edit by [employer] TVkranthi on 05/12/24 16:18 UA Bilirubin 0 mg/dL Last Edit by [employer] TVkranthi on 05/12/24 16:18 UA Glucose 0 mg/dL Last Edit by [employer] TVkranthi on 05/12/24 16:18 Results Reviewed Results Reviewed: Laboratory Last Values Urine pH (Auto) 6.0 05/12/24 16:16 Specific [place] (Auto) 1.030 05/12/24 16:16 Urine Protein (Auto) 0 mg/dL 05/12/24 16:16 Glucose (UA)(Auto) 0 mg/dL 05/12/24 16:16 Urine Blood (Auto) 0 Blue/uL 05/12/24 16:16 Urine Bilirubin (Auto) 0 mg/dL 05/12/24 16:16 Urine Urobilinogen (Auto) 0.2 mg/dL 05/12/24 16:16 Leukocyte Esterase (Auto) 0 Balaji/uL 05/12/24 16:16 Assessment & Plan Assessment & Plan (1) Low testosterone: Code(s): R79.89 - Other specified abnormal findings of blood chemistry Category: Medical Plan In office urinalysis results reviewed with the patient today; as noted above. We discussed at length potential causes of hypogondism. Recent labs reviewed with the patient today; as noted above. Start 5 mg of Cialis daily as discussed and prescribed. He otherwise denies any bothersome urinary issues or concerns. He reports be happy with current voiding parameters. Follow-up in 1-3 months with labs to be completed prior; or sooner with any issues, concerns, and or questions. Orders: Orders AMB Urinalysis Automated Today Z13.9 - Encounter for screening, unspecified Medications: New tadalafil (Cialis) [facility] [id number] [id number] 5 mg PO DAILY 90 days 90 tabs 1RF Patient Instructions: The patient had an opportunity to ask questions regarding the treatment plan. All questions were answered. Physical exam, labs, and imaging were discussed and reviewed in detail. As well as risks, benefits, and discussion of treatment choices. No major barriers to understanding were identified. The patient expressed understanding and agreement with the above treatment plan. The patient was made aware they should contact our office by phone for worsening of their current condition, the appearance of new symptoms, or with any questions or concerns. Compliance is encouraged with any medications and follow up testing that is ordered. It is a privilege to be allowed the opportunity to participate in? your urological care.? Again, if you have any questions or concerns If you have any questions or concerns please do not hesitate to contact me. The office is [phone]. This note is constructed using voice recognition software. While every effort has been made to ensure accuracy home health clinical liaison errors may have been included. Yours sincerely, NICHO Scott Coding Level of Care Code Est Pt Level 4 (16894) Diagnoses Low testosterone R79.89
== END 2024-05-12 16:21 | disposition home or self-care (01) ==
PROVIDERS: PCP Nurse Practitioner Family; Visit Provider Nurse Practitioner Family
DX: R79.89 Other specified abnormal findings of blood chemistry (principal); Z13.9 Encounter for screening, unspecified
CPT/HCPCS: 99214

== ENCOUNTER → 2024-05-12 15:50 | Outpatient (BNVA) | payer OTHER, SELFPAY | PROVIDERS: PCP Nurse Practitioner Family; Visit Provider Nurse Practitioner Family | DX: R79.89 Other specified abnormal findings of blood chemistry (principal) | CPT/HCPCS: 81003; 99212 ==

== ENCOUNTER 2024-08-08 09:09 | Outpatient (AMB) | payer OTHER, SELFPAY ==
--- OUTSIDE RECORDS SUMMARY | 2024-08-08 09:10 | XMS_ITS | Clinical Summary ---
Author Organization [facility] ity Address [address] [place] [address] Care Team Providers Care Railroad Surveyor Name Role Phone Prakash Holm MD Primary Care Provider [phone] Surgical History Surgery Date Site/Laterality Comments KNEE SURGERY PROCEDURE: HISTORICAL KNEE SURGERY; COMMENT: 4 surgeries on the right knee of knee cap fracture WISDOM TOOTH EXTRACTION PROCEDURE: HISTORICAL WISDOM TEETH EXTRACTION Medical History Medical History Date Comments Anxiety DX:Anxiety Insomnia DX:Insomnia Obesity DX:Obesity Family History Medical History Relation Name Comments Hypertension Father Heart attack Grandparent 1 Diabetes Mother Relation Name Status Comments Brother 1 Alive Brother 2 Alive Father Alive high cholestero l Grandparent 1 Grandparent 2 Mother Alive DM, HTN and CVA Son Alive Social History Tobacco Use Types Packs/Day Years Used Date Smoking Tobacco: Never Smokeless Tobacco: Never Alcohol Use Standard Drinks/Week Comments Yes 0 (1 standard drink = 0.6 oz pur e alcohol) Sex and Gender Information Value Date Recorded Sex Assigned at Not on file Legal Sex Male 6:17 PM EST Gender Identity Not on file Sexual Orientation Not on file Obstetrics History Plan of Treatment Health Maintenance Due Date Last Done Comments Hepatitis B Vaccines (1 of 3 - 19+ 3-dose series) 12/12/2002 DTaP,Tdap,and Td Vaccines (2 - Td or Tdap) 04/24/2023 04/24/2013 COVID-19 Vaccine (2023-2 5 season) 2024 Influenza Vaccine (#1) 2024 4, 04/24/2013, 04/24/2012 HIB Vaccines Aged Out No longer eligi ble based on patient's age to complete this topic HPV Vaccines Aged Out No longer eligi ble based on patient's age to complete this topic Hepatitis A Vaccines Aged Out No long er eligible based on patient's age to complete this topic IPV Vaccines Aged Out No longer eligi ble based on patient's age to complete this topic MMR Vaccines Aged Out No longer eligi ble based on patient's age to complete this topic Meningococcal ACWY Vaccine Aged Out N o longer eligible based on patient's age to complete this topic Meningococcal B Vacine Aged Out No lo nger eligible based on patient's age to complete this topic Pneumococcal Vaccine: Pediatrics (0 to 5 Years) and At-Risk Patients (6 to 64 Years) Aged Out No longer eligible b ased on patient's age to complete this topic RSV Immunization Patients Under 20 months Aged Out No longer eligible b ased on patient's age to complete this topic Varicella Vaccines Aged Out No longer eligible based on patient's age to complete this topic Care Teams Railroad Surveyor Relationship Specialty Start Date End Date Prakash Holm MD [address] [place] [id number] PCP - General Internal Medicine 05/12/15
--- OUTSIDE RECORDS SUMMARY | 2024-08-08 09:10 | XMS_ITS | Clinical Summary ---
Author Organization [facility] Address [address] [place] [address] Care Team Providers Care Trumpet Player Name Role Phone Unavailable Primary Care Provider Unavailabl e Source Comments PLEASE NOTE, if this patient is a minor, it may be UNLAWFUL to discuss sensitive information that is contained in these records (such as FAMILY PLANNING, MENTAL HEALTH or SUBSTANCE ABUSE) with the minor patient's parent or other person without the patient's specific authorization.[facility] Immunizations Name Administration Dates Next Due Moderna COVID-19 Vaccine, re d cap blue label, 12+ Primary Series 10/26/2020,09/28/2020 Social History Tobacco Use Types Packs/Day Years Used Date Smoking Tobacco: Never Assessed Social Connections Answer Date Recorded Social Connections and Isolation 0 09/28/2020 Financial Resource Strain Answer Date R ecorded Financial Resource Strain 0 2020 Stress Answer Date Recorded Stress 0 09/28/2020 Physical Activity Answer Date Recorded Physical Activity 0 09/28/2020 Food Insecurity Answer Date Recorded Food 0 09/28/2020 Transportation Needs Answer Date Record ed Transportation 0 09/28/2020 Housing Stability Answer Date Recorded Housing 0 09/28/2020 Safety and Environment Answer Date Stan rded Safety 0 09/28/2020 Utilities Answer Date Recorded Utilities 0 09/28/2020 Employment Answer Date Recorded Employment 0 09/28/2020 Sex and Gender Information Value Date Recorded Sex Assigned at Not on file Legal Sex Male 7:50 AM PDT Gender Identity Not on file Sexual Orientation Not on file Plan of Treatment Health Maintenance Due Date Last Done Comments Diabetes Screening 1983 Hepatitis C Screening 1983 Lipid Screening 1983 Tobacco Screening 1983 HIV Screening 12/12/1998 Annual Preventive Care Visit 12/12/2001 Hypertension Screening (#1) 12/12/2001 Imm-Hepatitis B (1 of 3 - 19 + 3-dose series) 12/12/2002 [id number] ( season) 2024 021, 09/28/2020 Imm-Influenza (#1) 2024 04/05/2014, 1 06/24/2012, 04/24/2012 Alcohol and Drug Screen 06/24/2024 Depression Annual Screen 06/24/2024 Imm-DTaP/Tdap/Td (3 - Td or Tdap) 10/04/2027 018, 04/24/2013 Insurance [facility] [employer] Member Subscriber Plan / Payer (Ef fective 2020-Present) Name:Rick Seng Relation to Subscriber:Self Name:Rick Seng Payer ID:[id number] Group ID:Not on file Type:Medicaid Address: [facility] [address] [place] [address]
[2024-08-08 09:46] VITALS: BP 128/84; PULSE 78; RESP 16; TEMP 36.4; O2SAT 98; BMI 35.1
--- NOTE | 2024-08-08 09:46 | AM.OFFWIN_ITS ---
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 No immediate strain or pain. Subsequently pain began to gradually ramp up. No numbness in groin. No loss of bowel or bladder function PFSH Medical History Chronic SI joint pain Surgical History History of knee surgery History of wisdom tooth extraction Family History Father HTN (hypertension) Mother Diabetes mellitus Maternal Grandmother History of heart attack Maternal Grandfather Diabetes mellitus Paternal Grandfather Unknown family medical history Paternal Grandmother Unknown family medical history Paternal Uncle Cancer Brother No problems noted. Brother No problems noted. Son No problems noted. Social History Housing: House Alcohol intake: current Alcohol intake frequency: holidays/special occasions only Patient Tobacco Use Status: Never used Tobacco e-Cigarette/Vaping Use: Never Used Second Hand Smoke Exposure: No service: No Current occupational status: employed Current occupational exposures/hazards: No Cognitive needs: No Hearing needs: No Vision needs: No Review of Systems Const Denies chills, Denies fatigue, Denies fever(s), Denies headache(s) and Denies weakness ENT Denies dizziness and Denies headache(s) Card Denies dyspnea Resp Denies cough, Denies dyspnea, Denies wheezing and Denies other ( shortness of breath) Musc Details: See HPI Denies numbness and Denies tingling Neuro Denies dizziness, Denies headache(s), Denies numbness, Denies tingling, Denies paresthesias and Denies weakness Psych Denies anxiety and Denies depression Endo Denies fatigue Aller/Immun Denies wheezing Physical Exam Vital Signs: Last Vital Signs Temp 97.6 F 08/08/24 09:46 Pulse 78 08/08/24 09:46 Resp 16 08/08/24 09:46 BP 128/84 08/08/24 09:46 Pulse Ox 98 08/08/24 09:46 Oxygen Delivery Method Room Air 08/08/24 09:46 BMI result Body Mass Index 35.1 Const General: no acute distress and well developed Nutritional Appearance: well nourished Orientation/consciousness: patient oriented x3 HEENT Head: Yes normocephalic and Yes atraumatic Eyes General: appearance normal, both eyes and all related structures Pupils: Equal, round and reactive pupils present EOM: EOMs intact bilaterally Resp Effort & Inspection: normal respiratory effort Auscultation: clear to auscultation bilaterally Cardio Rate: regular rate Rhythm: regular rhythm Heart sounds: S1 normal heart sound present, S2 normal heart sound present, no gallops, no murmurs and no rubs Back/Spine/Pelvis Other: Tenderness at left lower back just above buttock Pain with flexion at the waist and also decreased straight leg raise on left but this appears to be stiffness/decreased flexibility. Neuro General: patient oriented x3 and gait normal Cranial nerves: Yes Equal, round and reactive pupils present Psych Affect: normal affect Assessment & Plan Assessment & Plan (1) Strain of muscle, fascia and tendon of lower back, initial encounter: Code(s): S39.012A - Strain of muscle, fascia and tendon of lower back, initial encounter Plan: Advised relative rest. Patient is on light duty at work and has the next couple days off Ice/heat Will give him meloxicam for pain/inflammation and a short course of tramadol for breakthrough pain. Will give him cyclobenzaprine for muscle spasm Call or return to office if worsening or not improving Medications: New tramadol 50 mg PO BID 3 days PRN 6 tabs 0RF pain meloxicam 15 mg PO DAILY 30 days 30 tabs 2RF cyclobenzaprine 10 mg PO Q12H 7 days PRN 14 tabs 0RF muscle spasm Coding Level of Care Code Est Pt Level 3 (61711) Diagnoses Strain of muscle, fascia and tendon of lower back, initial encounter S39.012A
== END 2024-08-08 10:58 | disposition home or self-care (01) ==
PROVIDERS: PCP Nurse Practitioner Family; Visit Provider Family Medicine
DX: S39.012A Strain of muscle, fascia and tendon of lower back, initial encounter (principal)

== ENCOUNTER → 2024-08-08 09:09 | Outpatient (BNVA) | payer OTHER, SELFPAY | PROVIDERS: PCP Nurse Practitioner Family | DX: S39.012A Strain of muscle, fascia and tendon of lower back, initial encounter (principal) | CPT/HCPCS: 99212 ==

== ENCOUNTER 2024-09-05 09:11 | Outpatient (REF) | payer OTHER, SELFPAY ==
--- OUTSIDE RECORDS SUMMARY | 2024-09-05 09:13 | XMS_ITS | Encounter Summary ---
Author Organization [facility] Address [address] [place] [address] Care Team Providers Care Disk Recordist Name Role Phone Prakash Holm MD Primary Care Provider [phone] Encounter Details Date Type Department Care Team (Late st Contact Info) Description 08/13/2024 Telephone [facility] 175 [facility] [address] [place] [address] Manda Ortiz MA Social History Tobacco Use Types Packs/Day Years Used Date Smoking Tobacco: Never Smokeless Tobacco: Never Alcohol Use Standard Drinks/Week Comments Yes 0 (1 standard drink = 0.6 oz pur e alcohol) Sex and Gender Information Value Date Recorded Sex Assigned at Not on file Legal Sex Male 6:17 PM EST Gender Identity Not on file Sexual Orientation Not on file documented as of this encounter Progress Notes * Lizeth Bautista MA - 08/17/2024 8:58 AM EST Appointment scheduled for 08/25/24 @ 3pm w/Tym. Pt aware * NICOLA Davies - 08/13/2024 4:03 PM EST I called Mr. Cabrera. He is having significant left sided LBP. I will put in an order for xrays. Please call him to schedule an appointment. * Manda Ortiz MA - 08/13/2024 10:18 AM EST Chart on wall, last seen 2020. Patient hurt back on work, no new imaging, increased low back pain. Please call [phone] documented in this encounter Plan of Treatment Upcoming Encounters Date Type Department Care Team (Late st Contact Info) Description 09/09/2024 2:00 PM EDT Office Visit Neurosurgery [facility] [address] [place] [phone] Trung Tran PA [address] [facility] [address] [place] [address] documented as of this encounter Visit Diagnoses Not on filedocumented in this encounter Care Teams Disk Recordist Relationship Specialty Start Date End Date Prakash Holm MD [address] [place] [address] PCP - General Internal Medicine 05/12/15 documented as of this encounter
--- OUTSIDE RECORDS SUMMARY | 2024-09-05 09:13 | XMS_ITS | Encounter Summary ---
Author Organization [facility] Address [address] [place] [address] Care Team Providers Care Sales Enablement Consultant Name Role Phone Prakash Holm MD Primary Care Provider [phone] Encounter Details Date Type Department Care Team (Latest Contact Info) Description 08/25/2024 1:52 PM EST - 08/25/2024 11:59 PM EST Hospital Encounter [facility] Xray [address] [place] [phone] Left-sided low back pain with bilateral sciatica, unspecified chronicity Discharge Disposition: Home or Self Care Social History Tobacco Use Types Packs/Day Years [...] on file documented as of this encounter Medications at Time of Discharge cyclobenzaprine (FLEXERIL) 10 mg tablet Take 1 tablet (10 mg total) by mouth 3 (three) times a day if needed. 08/13/2024 ibuprofen (ADVIL,MOTRIN) 800 mg tablet Take 1 tablet (800 mg total) by mouth 3 (three) times a day if needed. with food 08/13/2024 lidocaine (LIDODERM) 5 % patch 08/20/2024 meloxicam (MOBIC) 15 mg tablet Take 1 tablet (15 mg total) by mouth 1 (one) time each day. 08/08/2024 naproxen (NAPROSYN) 500 mg tablet 08/20/2024 tadalafiL (CIALIS) 5 mg tablet Take 1 tablet (5 mg total) by mouth 1 (one) time each day. for 90 days 05/12/2024 tolnaftate (TINACTIN) 1 % external solution Apply topically to toenails 11/10/2020 traMADoL (ULTRAM) 50 mg tablet TAKE 1 TABLET BY MOUTH TWICE A DAY NEEDED FOR PAIN FOR 3 DAYS 08/08/2024 zolpidem (AMBIEN) 10 mg tablet Take 1 tablet (10 mg total) by mouth at bedtime as needed. Max Daily Amount: 10 mg documented as of this encounter Discharge Disposition Disposition Code Departure Means Destination Home or Self Care documented in this encounter Plan of Treatment Upcoming Encounters Date Type Department Care Team (Late st Contact Info) Description 09/09/2024 2:00 PM EDT Office Visit Neurosurgery [place] [facility] 175 [facility] [address] [place] [phone] Trung Tran PA 175 [facility] [address] [place] [address] documented as of this encounter Procedures Procedure Name Priority Date/Time Associated Diagnosis Comments XR LUMBAR SPINE 4+ VIEWS Routine 08/25/2024 2:07 PM EST Left-sided low back pain with bilateral sciatica, unspecified chronicity documented in this encounter Results * XR Lumbar Spine 4+ Views (08/25/2024 2:07 PM EST) Anatomical Region Laterality Modality Spine, L-spine Radiographic Princess ging 08/26/2024 10:3 9 AM EST Impressions 08/26/2024 10:42 AM EST Alignment is anatomic and there is no abnormal relative bony motion with flexion and extension. Range of motion is limited, particularly with flexion. There is degenerative disc disease at the L2-3 and L5-S1 levels. Code 25013 -------- FINAL REPORT -------- Dictated By: Quincy Cantu Dictated Date: 08/26/2024 10:39 ET Assigned Physician: Quincy Cantu Reviewed and Electronically Signed By: Quincy Cantu Signed Date: 08/26/2024 10:42 ET Workstation ID: [id number] Transcribed By: Self Edit Transcribed Date: 08/26/2024 10:39 ET Narrative 08/26/2024 10:42 AM EST HISTORY: The patient is a 38-year-old male with low back pain. No history of trauma is provided. FINDINGS: Lateral views of the lumbosacral spine in neutral, flexion, and extension positions, along with an AP view, are obtained. The study demonstrates normal alignment of the bony structures. No fracture is seen. The disc spaces are well-maintained. There is narrowing of the L2-3 and L5-S1 disc spaces consistent with degenerative disc disease. The remaining disc spaces are well-maintained. There is no abnormal relative bony motion with flexion and extension. Range of motion is somewhat limited, particularly with flexion. Cholecystectomy clips are noted. Procedure Note Quincy Cantu MD - 08/26/2024 HISTORY: The patient is a 38-year-old male with low back pain. No historyof trauma is provided. FINDINGS: Lateral views of the lumbosacral spine in neutral, flexion, andextension positions, along with an AP view, are obtained. The studydemonstrates normal alignment of the bony structures. No fracture is seen.The disc spaces are well-maintained. There is narrowing of the L2-3 andL5-S1 disc spaces consistent with degenerative disc disease. The remainingdisc spaces are well-maintained. There is no abnormal relative bony motionwith flexion and extension. Range of motion is somewhat limited,particularly with flexion. Cholecystectomy clips are noted. IMPRESSION: Alignment is anatomic and there is no abnormal relative bony motion withflexion and extension. Range of motion is limited, particularly withflexion. There is degenerative disc disease at the L2-3 and L5-B5pcxfct. Code 82620 -------- FINAL REPORT -------- Dictated By: Quincy Cantu Dictated Date: 08/26/2024 10:39 ET Assigned Physician: Quincy Cantu Reviewed and Electronically Signed By: Quincy Cantu Signed Date: 08/26/2024 10:42 ET Workstation ID: [id number] Transcribed By: Self Edit Transcribed Date: 08/26/2024 10:39 ET Trung PETERSEN IMG XR PROCEDURES Final Resul t documented in this encounter Visit Diagnoses Diagnosis Left-sided low back pain with bilateral sciatica, unspecified chronicity documented in this encounter Care Teams Sales Enablement Consultant Relationship Specialty Start Date End Date Prakash Holm MD [address] [place] [address] PCP - General Internal Medicine 05/12/15 documented as of this encounter
--- OUTSIDE RECORDS SUMMARY | 2024-09-05 09:14 | XMS_ITS | Clinical Summary ---
Author Organization [facility] Address [address] [place] [address] Care Team Providers Care Cartridge Feeder Name Role Phone Chuck Caro Primary Care Provider [phone] Social History Tobacco Use Types Packs/Day Years Used Date Smoking Tobacco: Never Assessed Sex and Gender Information Value Date Recorded Sex Assigned at Not on file Gender Identity Not on file Sexual Orientation Not on file Plan of Treatment Health Maintenance Due Date Last Done Comments Hepatitis B Vaccines (1 of 3 - 3-dose series) 1983 Hepatitis C Screening 1983 COVID-19 Vaccine (#1) 06/13/1984 Depression Screening 1995 Preventative Health Evaluation 12/12/2001 DTap / Tdap / Td (1 - Tdap) 12/12/2002 Influenza Vaccine (#1) 2024 Pneumococcal Vaccine Aged Out No long er eligible based on patient's age to complete this topic RSV Ped < 20 months Aged Out No longe r eligible based on patient's age to complete this topic Care Teams Cartridge Feeder Relationship Specialty Start Date End Date Chuck Caro [address] [facility] [place] [address] PCP - General Family Medicine 01/14/20
--- OUTSIDE RECORDS SUMMARY | 2024-09-05 09:14 | XMS_ITS | Clinical Summary ---
Author Organization [address] [facility] Address [address] [place] [address] Phone Care Team Providers Care Malted Milk Mixer Name Role Phone Prakash Holm MD Primary Care Provider [phone] Allergies Active Allergy Reactions Criticality Noted Date Comments Penicillins Other 04/03/2011 Medications tolnaftate (TINACTIN) 1 % external solution Apply topically to toenails 1 Active zolpidem (AMBIEN) 10 mg tablet Take 1 tablet (10 mg total) by mouth at bedtime as needed. Max Daily Amount: 10 mg Active cyclobenzaprine (FLEXERIL) 10 mg tablet Take 1 tablet (10 mg total) by mouth 3 (three) times a day if needed. 5 Active ibuprofen (ADVIL,MOTRIN) 800 mg tablet Take 1 tablet (800 mg total) by mouth 3 (three) times a day if needed. with food 5 Active lidocaine (LIDODERM) 5 % patch 5 Active naproxen (NAPROSYN) 500 mg tablet 5 Active meloxicam (MOBIC) 15 mg tablet Take 1 tablet (15 mg total) by mouth 1 (one) time each day. 5 Active tadalafiL (CIALIS) 5 mg tablet Take 1 tablet (5 mg total) by mouth 1 (one) time each day. for 90 days 4 Active traMADoL (ULTRAM) 50 mg tablet TAKE 1 TABLET BY MOUTH TWICE A DAY NEEDED FOR PAIN FOR 3 DAYS 02/15/202 5 Active Active Problems Problem Noted Date Diagnosed Date Acute midline low back pain with left-sided scia josie 08/25/2024 Assessment & Plan (08/25/2024 3:59 PM EST): Mr. Gongora describes an event at work when he was lifting something and his colleague dropped his end. Since that time Mr. Gongora has had an increase in his low back pain with radiation to the left leg. He began physical therapy a few days ago. He is neurologically intact. X-rays of the lumbar spine show degenerative changes at L5-S1. He is going to continue physical therapy and taking NSAIDs. If after he finishes physical therapy he still has significant pain, we will obtain an MRI of the lumbar spine to better evaluate his situation. I told him if he was having worsening pain to call and I would give him a prescription for pulse dose dexamethasone. We also talked about weight loss and how getting closer to his ideal body weight would likely impact his back pain. Will follow-up with us after therapy if needed. Dysuria 10/27/2012 Insomnia 04/24/2012 Anxiety 04/03/2011 Overview (08/18/2024): Dr Murillo and is using Ambien at night Encounters Date Type Department Care Team Description 09/04/2024 Telephone Neurosurgery [facility] [address] [address] Lizeth Bautista MA Letter for work 08/31/2024 Telephone Neurosurgery [facility] [address] [address] Lizeth Bautista MA Advice Only 08/25/2024 3:00 PM EST Consult Neurosurgery [facility] [address] [address] Trung Tran PA Acute midline low back pain with left-sided sciatica (Primary Dx) 08/25/2024 1:52 PM EST - 08/25/2024 11:59 PM EST Hospital Encounter [facility] Xray [address] [place] [address] Left-sided low back pain with bilateral sciatica, unspecified chronicity Discharge Disposition: Home or Self Care 08/13/2024 Telephone Neurosurgery [facility] 175 [facility] [address] [place] [address] Manda Ortiz MA from Last 3 Months Immunizations Name Administration Dates Next Due Influenza trivalent, with pr eservative (Fluzone; Afluria) 6mo and older 04/05/2014,04/24/2013,04/24/2012 PPD Test 08/05/2012 Tdap Tetanus diptheria acell ular pertussis (Boostrix; Adacel) 7yo and older 04/24/2013 Surgical History Surgery Date Site/Laterality Comments KNEE SURGERY PROCEDURE: HISTORICAL KNEE SURGERY; COMMENT: 4 surgeries on the right knee of knee cap fracture WISDOM TOOTH EXTRACTION PROCEDURE: HISTORICAL WISDOM TEETH EXTRACTION Medical History Medical History Date Comments Anxiety DX:Anxiety Insomnia DX:Insomnia Obesity DX:Obesity Low back pain Family History Medical History Relation Name Comments Hypertension Father Heart attack Grandparent 1 Diabetes Mother Relation Name Status Comments Brother 1 Alive Brother 2 Alive Father Alive high cholestero l Grandparent 1 Grandparent 2 Mother Alive DM, HTN and CVA Son Alive Social History Tobacco Use Types Packs/Day Years Used Date Smoking Tobacco: Never Smokeless Tobacco: Never Tobacco Cessation:Counseling Given: Not Answered Alcohol Use Standard Drinks/Week Comments Yes 0 (1 standard drink = 0.6 oz pur e alcohol) Sex and Gender Information Value Date Recorded Sex Assigned at Not on file Legal Sex Male 6:17 PM EST Gender Identity Not on file Sexual Orientation Not on file Obstetrics History Last Filed Vital Signs Vital Sign Reading Time Taken Comments Blood Pressure - - Pulse - - Temperature - - Respiratory Rate - - Oxygen Saturation - - Inhaled Oxygen Concentration - - Weight 104 kg (230 lb) 08/25/2024 3:09 PM EST Height 177.8 cm (5' 10 ) 08/25/2024 3:09 PM EST Body Mass Index 33 08/25/2024 3:09 PM EST Plan of Treatment Upcoming Encounters Date Type Department Care Team (Late st Contact Info) Description 09/09/2024 2:00 PM EDT Office Visit Neurosurgery [facility] 175 [facility] [address] [place] [address] Trung Tran PA [address] [address] Health Maintenance Due Date Last Done Comments Hepatitis B Vaccines (1 of 3 - 19+ 3-dose series) 12/12/2002 DTaP,Tdap,and Td Vaccines (2 - Td or Tdap) 04/24/2023 04/24/2013 COVID-19 Vaccine (3 - 2023-2 5 season) 2024 10/26/2020, 09/28/2020 Influenza Vaccine (#1) 2024 4, 04/24/2013, 04/24/2012 Cholesterol Screening (Lipid Panel) 08/13/2024 06/08/2013 Depression Screening 08/13/2024 Social Influencers of Health Screening 08/13/2024 HIV Screening Completed 04/05/2014 Hepatitis C Screening Completed 04/05/2014 HIB Vaccines Aged Out No longer eligi [...] on patient's age to complete this topic Procedures Procedure Name Priority Date/Time Associated Diagnosis Comments XR LUMBAR SPINE 4+ VIEWS Routine 08/25/2024 2:07 PM EST Left-sided low back pain with bilateral sciatica, unspecified chronicity HEPATITIS C SCREENING Routine 04/05/2014 HIV SCREENING Routine 04/05/2014 LIPID PANEL Routine 06/08/2013 from Last 3 Months or Most Recently Relevant to Health Maintenance Results * XR Lumbar Spine 4+ Views [...] at the L2-3 and L5-S1 levels. Code 52117 -------- FINAL REPORT -------- Dictated By: Quincy aCntu Dictated Date: 08/26/2024 10:39 ET Assigned Physician: Quincy Cantu Reviewed and Electronically Signed By: Quincy Cantu Signed Date: 08/26/2024 10:42 ET Workstation ID: [id number] Transcribed By: Self Edit Transcribed Date: 08/26/2024 [...] degenerative disc disease at the L2-3 and L5-J0xpxsux. Code 10817 -------- FINAL REPORT -------- Dictated By: Quincy Cantu Dictated Date: 08/26/2024 10:39 ET Assigned Physician: Quincy Cantu Reviewed and Electronically Signed By: Quincy Cantu Signed Date: 08/26/2024 10:42 ET Workstation ID: [id number] Transcribed By: Self Edit Transcribed Date: 08/26/2024 10:39 ET Result [facility] Trung PETERSEN IMG XR PROCEDURES Final Resul t * HIV Screening (04/05/2014) [facility] HIV Screening ABSTRACTED Result [facility] Historical Provider HEALTH MAINTENANCE Final Result * Hepatitis C Screening (04/05/2014) [facility] Hepatitis C Screening ABSTRACTED [facility] Provider HEALTH MAINTENANCE Final Result * Lipid panel (06/08/2013) [facility] LDL/HDL Ratio 3 0 - 4 Triglycerides 107 0 - 150 mg/dL Cholesterol 161 0 - 200 mg/dL HDL 54 >=40 mg/dL LDL Cholesterol 86 0 - 100 mg/dL Blood Venous blood specimen / Unknown Result [facility] Historical Provider LAB BLOOD ORDERABLES Shannon l Result from Last 3 Months or Most Recently Relevant to Health Maintenance Insurance [employer] WC GENER[employer] Care Teams Malted Milk Mixer Relationship Specialty Start Date End Date Prakash Holm MD [address] [place] [address] PCP - General Internal Medicine 05/12/15
--- OUTSIDE RECORDS SUMMARY | 2024-09-05 09:14 | XMS_ITS | Encounter Summary ---
Author Organization [facility] Address [address] [place] [address] Care Team Providers Care Pattern Maker Name Role Phone Prakash Holm MD Primary Care Provider [phone] Reason for Visit * Reason Onset Date Comments Advice Only 08/31/2024 Encounter Details Date Type Department Care Team ([facility] st Contact Info) Description 08/31/2024 Telephone [facility] 175 [facility] [address] [place] [address] Lizeth Bautista MA Advice Only Social History Tobacco Use Types Packs/Day Years [...] as of this encounter Progress Notes * NICOLA Davies - 09/01/2024 5:01 PM EDT I spoke to Mr. Cabrera' his . He is still having the same pain. She says that he has been going to physical therapy for about 4 weeks 2 or 3 times a week. Please obtain the records from physicaltherapy and get an appointment for him to come back in to be seen. * Lizeth Bautista MA - 08/31/2024 3:47 PM EDT Roz/ calling because patient continue in pain; he went to P.T. today and told the therapist that you offered him surgery and he would like to proceed. She's calling to see if you can put an order for L/Spine MRI and follow up appointment to go over the results and possible surgery. Pls call at [phone]. documented in this encounter Plan of Treatment Upcoming Encounters Date Type Department Care Team (Late st Contact Info) Description 09/09/2024 2:00 PM EDT Office Visit Neurosurgery [facility] [address] [facility] [address] [place] [phone] Trung Tran PA [address] [place] [address] documented as of this encounter Visit Diagnoses Not on filedocumented in this encounter Care Teams Pattern Maker Relationship Specialty Start Date End Date Prakash Holm MD [address] [place] [address] PCP - General Internal Medicine 05/12/15 documented as of this encounter
--- OUTSIDE RECORDS SUMMARY | 2024-09-05 09:14 | XMS_ITS | Encounter Summary ---
Author Organization [employer] Address [address] [place] [address] Care Team Providers Care Geodesist Name Role Phone Prakash Holm MD Primary Care Provider [phone] Reason for Visit * Reason Comments Pain Low back pain - left sided Encounter Details Date Type Department Care Team (Late st Contact Info) Description 08/25/2024 3:00 PM EST Consult Neurosurgery [place] [facility] [address] [place] [phone] Trung Tran PA [address] [place] [address] Acute midline low back pain with left-sided sciatica (Primary Dx) Social History Tobacco Use Types Packs/Day Years [...] on file documented as of this encounter Last Filed Vital Signs Vital Sign Reading Time Taken Comments Blood Pressure - - Pulse - - Temperature - - Respiratory Rate - - Oxygen Saturation - - Inhaled Oxygen Concentration - - Weight 104 kg (230 lb) 08/25/2024 3:09 PM EST Height 177.8 cm (5' 10 ) 08/25/2024 3:09 PM EST Body Mass Index 33 08/25/2024 3:09 PM EST documented in this encounter Progress Notes * NICOLA Davies - 08/25/2024 3:59 PM ESTAssociated Problem(s): Acute midline low back pain with left-sided sciatica Mr. Cabrera describes an event at work when he was lifting something and his colleague dropped hisend. Since that time Mr. Cabrera has had an increase in his low [...] dexamethasone. We also talked about weight loss andhow getting closer to his ideal body weight would likely impact his back pain. Will follow-up with us after therapy if needed. * NICOLA Davies - 08/25/2024 3:00 PM EST NEW PATIENT CONSULTATION Date of Visit: 08/25/2024 Referring Physician: No ref. provider found Primary Care Physician: Prakash Holm MD RE: Seng Cabrera : 1985 Chief Complaint Patient presents with Pain Low back pain - left sided Dear No ref. provider found Thank you for referring Mr. Cabrera to our office today. Seng Cabrera is a 38 y.o. male who presents to our office with an almost 1 month history of a flare of low back pain with radiation down the left leg. He says it all started when he was at work and carrying a large box. The person at the other end dropped their end and he has had low back pain with radiation down the back of the left leg since. He is taking NSAIDs and recently began physical therapy. Past Medical History: Diagnosis Date Anxiety DX:Anxiety Insomnia DX:Insomnia Low back pain Obesity DX:Obesity Past Surgical History: Procedure Laterality Date KNEE SURGERY PROCEDURE: HISTORICAL KNEE SURGERY; COMMENT: 4 surgeries on the right knee of knee cap fracture WISDOM TOOTH EXTRACTION PROCEDURE: HISTORICAL WISDOM TEETH EXTRACTION Allergies Allergen Reactions Penicillins Other Current Outpatient Medications Medication Instructions cyclobenzaprine (FLEXERIL) 10 mg, 3 times daily PRN ibuprofen (ADVIL,MOTRIN) 800 mg, 3 times daily PRN lidocaine (LIDODERM) 5 % patch meloxicam (MOBIC) 15 mg, Daily naproxen (NAPROSYN) 500 mg tablet tadalafiL (CIALIS) 5 mg, Daily tolnaftate (TINACTIN) 1 % external solution Apply topically to toenails traMADoL (ULTRAM) 50 mg tablet TAKE 1 TABLET BY MOUTH TWICE A DAY NEEDED FOR PAIN FOR 3 DAYS zolpidem (AMBIEN) 10 mg tablet 1 tablet, Nightly PRN Social History Tobacco Use Smoking status: Never Smokeless tobacco: Never Substance Use Topics Alcohol use: Yes Drug use: No Social History Social History Narrative Not on file Family History Problem Relation Name Age of Onset Heart attack Grandparent Diabetes Mother Hypertension Father Review of systems was notable for weakness in the leg and the history of present illness. Physical Exam On physical examination, the patient is 5 feet 10 inches tall and weighs 230 pounds. He was awake and alert and oriented. Speech was clear and fluent. Respirations were unlabored. Heart had a regularrate. He ambulates in the office without difficulty. He indicated his pain down the back of the left leg in an S1 distribution. He had good strength in all major muscle groups of the upper and lower extremities. Deep tendon reflexes were diffusely depressed. There were no myelopathic findings. Imaging Diagnostic studies include x-rays of the lumbar spine from today August 25, 2024 at [facility]. These show mild degenerative changes with loss of disc height at L5-S1. Alignment is good. Thisis my reading as the films have not yet been read by a radiologist. Assessment/Plan Problem List Items Addressed This Visit Acute midline low back pain with left-sided sciatica - Primary Mr. Cabrera describes an event at work when he was lifting something and his colleague dropped hisend. Since that time Mr. Cabrera has had an increase in his low [...] dexamethasone. We also talked about weight loss andhow getting closer to his ideal body weight would likely impact his back pain. Will follow-up with us after therapy if needed. Thank you for allowing us to care for your patient. NICOLA Davies on 08/25/2024 at 3:59 PM EST CC: No ref. provider found Prakash Holm MD [facility] Neurosurgical [place] documented in this encounter Plan of Treatment Upcoming Encounters Date Type Department Care Team (Late st Contact Info) Description 09/09/2024 2:00 PM EDT Office Visit Neurosurgery [place] [facility] [address] [place] [address] Trung Tran PA [address] [place] [address] documented as of this encounter Visit Diagnoses Diagnosis Acute midline low back pain with left-sided sciatica- Primary documented in this encounter Historical Medications * This list may reflect changes made after this encounter. traMADoL (ULTRAM) 50 mg tablet TAKE 1 TABLET BY MOUTH TWICE A DAY NEEDED FOR PAIN FOR 3 DAYS 08/08/2024 tadalafiL (CIALIS) 5 mg tablet Take 1 tablet (5 mg total) by mouth 1 (one) time each day. for 90 days 05/12/2024 meloxicam (MOBIC) 15 mg tablet Take 1 tablet (15 mg total) by mouth 1 (one) time each day. 08/08/2024 naproxen (NAPROSYN) 500 mg tablet 08/20/2024 lidocaine (LIDODERM) 5 % patch 08/20/2024 ibuprofen (ADVIL,MOTRIN) 800 mg tablet Take 1 tablet (800 mg total) by mouth 3 (three) times a day if needed. with food 08/13/2024 cyclobenzaprine (FLEXERIL) 10 mg tablet Take 1 tablet (10 mg total) by mouth 3 (three) times a day if needed. 08/13/2024 added in this encounter Care Teams Geodesist Relationship Specialty Start Date End Date Prakash Holm MD [address] [place] [address] PCP - General Internal Medicine 05/12/15 documented as of this encounter
--- OUTSIDE RECORDS SUMMARY | 2024-09-05 09:14 | XMS_ITS | Clinical Summary ---
Author Organization [facility] Address [address] [place] [address] Care Team Providers Care Simulation Analyst Name Role Phone Unavailable Primary Care Provider [...] 1985 Tobacco Screening 1985 HIV Screening 12/12/1998 Hypertension Screening (#1) 12/12/2001 Imm-Hepatitis B (1 of 3 - 19 + 3-dose series) 12/12/2002 [id number] ( season) 2024 021, 09/28/2020 Imm-Influenza (#1) 2024 04/05/2014, 1 06/24/2012, 04/24/2012 Alcohol and Drug Screen 06/24/2024 Depression Annual Screen 06/24/2024 Imm-DTaP/Tdap/Td (3 - Td or Tdap) 10/04/2027 018, 04/24/2013 Insurance [facility] [employer] PLAN Member Subscriber Plan / Payer (Ef fective 2020-Present) Name:Rick Seng Relation to Subscriber:Self Name:Seng Cabrera Payer ID:[id number] Group ID:Not on file Type:Medicaid Address: [facility] [address] [place] [address]
--- OUTSIDE RECORDS SUMMARY | 2024-09-05 09:14 | XMS_ITS | Encounter Summary ---
Author Organization [employer] Address [address] [place] [address] Care Team Providers Care Still Runner Name Role Phone Prakash Holm MD Primary Care Provider [phone] Reason for Visit * Reason Onset Date Comments Letter for work 09/04/2024 Encounter Details Date Type Department Care Team ([facility] st Contact Info) Description 09/04/2024 Telephone [facility] [address] [place] [address] Lizeth Bautista MA Letter for work Social History Tobacco Use Types Packs/Day Years [...] encounter Progress Notes * NICOLA Davies - 09/04/2024 4:40 PM EDT Asking for a letter stating no lifting > 20 lbs and can't work more than 40 hrs/week. Will provide. * Lizeth Bautista MA - 09/04/2024 3:49 PM EDT Patient calling requesting a letter (due to his low back and left leg pain) stating he's able to work 40hrs but light duty. pls call Roz/ at [phone]. documented in this encounter Plan of Treatment Upcoming Encounters Date Type Department Care Team (Late st Contact Info) Description 09/09/2024 2:00 PM EDT Office Visit Neurosurgery [facility] [address] [place] [phone] Trung Tran PA [address] [place] [address] documented as of this encounter Visit Diagnoses Not on filedocumented in this encounter Care Teams Still Runner Relationship Specialty Start Date End Date Prakash Holm MD [address] [place] [address] PCP - General Internal Medicine 05/12/15 documented as of this encounter
[2024-09-11 21:08] LABS: Testosterone, Total 312 ng/dL (250-1100)
== END 2024-09-05 09:12 | disposition home or self-care (01) ==
LOC: HO.HMGCLDS 09:11
PROVIDERS: PCP Nurse Practitioner Family; Visit Provider Nurse Practitioner Family
DX: R79.89 Other specified abnormal findings of blood chemistry (principal)
CPT/HCPCS: 36415; 84402; 84403

== ENCOUNTER 2024-09-07 13:41 | Outpatient (AMB) | payer OTHER, SELFPAY ==
[2024-09-07 13:56] VITALS: BP 126/80; PULSE 92; TEMP 36.6; O2SAT 96; BMI 35.7
--- NOTE | 2024-09-07 13:56 | A.OFFPC_ITS ---
Vital Signs 09/07/24 13:56 Height 5 ft 9 in Weight 242 lb BMI 35.7 BP 126/80 Blood Pressure Location Lt brachial Position Sitting Pulse 92 Pulse Source Pulse Oximeter Temp 97.8 F Temp Source Oral Pulse Oximetry (%) 96 Intake Visit Reasons: Follow up Back pain Walk-in Intake Note: pt is here for back pain Latex Caster Required: No Accompanied by: Self / Same As Patient Allergies penicillin V Allergy (Unknown, Verified 09/07/24 13:56) Rash Tobacco use date assessed: 09/07/24 Dental Screening Dental Screen Date: 09/07/24 Did you have a dental visit in the last 12 months?: Yes Did you have a dental problem in the last 6 months where you did not have access to dental care?: No Was dental information given to patient?: Patient has dentist HPI Follow up Back pain Walk-in HPI Details Chief Complaint The patient presents with ongoing lower back pain and radiculopathy following workplace injury. History of Present Illness The patient is a 38-year-old male presenting with follow-up concerns for a lumbar spine injury sustained on July 30 while lifting heavy doors at work. This injury resulted in a popping sensation in the lower back, followed by severe transverse lower back pain. The pain radiates down the left posterior lower extremity, consistent with radiculopathy. Currently, the patient is under the care of a neurosurgeon, planning for an MRI to evaluate the current condition further. Neurological examination indicated positive dorsalis pedis pulse and patellar reflex, with no loss in S1 or S2 dermatomes noted. 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 Health Maintenance Review of Systems Physical Exam General: Cooperative, healthy appearing, comfortable, no acute distress and well developed Orientation: Patient oriented x3 Limitations: No limitations Head: Normal to inspection Ears: Hearing grossly normal bilaterally Nose: Normal external nose present Face and sinus: Normal facial exam Eyes: Appearance normal, both eyes and all related structures Neck: Normal visual inspection and Yes full ROM Respiratory: Normal respiratory effort and able to speak in complete sentences. Clear to auscultation bilaterally Cardiovascular: Regular rate and rhythm. Normal S1 and S2 GI: Normal to inspection. Soft to palpation and nontender Skin: No rashes or lesions noted Neuro: Positive dorsalis pedis, positive patellar reflexes Extremities: Radiculopathy down left lower extremity, posterior aspect with straight leg raises. + transverse lower back pain and radicular symptoms down LLE with heel walking. tenderness noted with palpation of lower transverse back. Results - MRI: Planned for further evaluation Plan I emphasize the importance of obtaining an MRI to appropriately evaluate any structural issues relating to the patient?s lumbar spine condition, which are contributing to his persistent back pain and radiculopathy. The patient needs to continue follow-up consultations with neurosurgery and monitor the progression of symptoms, especially the radicular pain, to ensure any worsening is promptly addressed. Future management, including work modification and therapy, will be guided by the findings of the impending neuroimaging. Discussion Notes I discussed with the patient the likely structural nature of his lower back pain and radiculopathy and the necessity of obtaining an MRI for comprehensive evaluation. We covered the implications of the neurosurgical follow-up and anticipated MRI findings, emphasizing the importance of accurately identifying any potential structural abnormalities to inform our future management strategy. The patient understands the condition?s association with occupational activity and is advised on follow-up care to prevent symptom exacerbation. Patient Instructions - Attend the follow-up appointment with the neurosurgeon in two days as planned. - Undergo the scheduled MRI to assess th e lumbar spine condition. - Report any changes or worsening of sym ptoms immediately. - Avoid any heavy lifting or activities that could exacerbate the current condition. PFSH Medical History Chronic SI joint pain Surgical History History of knee surgery History of wisdom tooth extraction Family History Father HTN (hypertension) Mother Diabetes mellitus Maternal Grandmother History of heart attack Maternal Grandfather Diabetes mellitus Paternal Grandfather Unknown family medical history Paternal Grandmother Unknown family medical history Paternal Uncle Cancer Brother No problems noted. Brother No problems noted. Son No problems noted. Social History Housing: House Alcohol intake: current Alcohol intake frequency: holidays/special occasions only Patient Tobacco Use Status: Never used Tobacco e-Cigarette/Vaping Use: Never Used Second Hand Smoke Exposure: No service: No Current occupational status: employed Current occupational exposures/hazards: No Cognitive needs: No Hearing needs: No Vision needs: No Questionnaire PHQ-9 Over the last 2 weeks, how often have you been bothered by any of the following problems? 1. Little interest or pleasure in doing things: not at all 2. Feeling down, depressed, or hopeless: not at all 3. Trouble falling or staying asleep, or sleeping too much: not at all 4. Feeling tired or having little energy: not at all 5. Poor appetite or overeating: not at all 6. Feeling bad about yourself - or that you are a failure or have let yourself or your family down: not at all 7. Trouble concentrating on things, such as reading the newspaper or watching television: not at all 8. Moving or speaking so slowly that other people could have noticed. Or the opposite - being so fidgety or restless that you have been moving around a lot more than usual: not at all 9. Thoughts that you would be better off or of hurting yourself in some way: not at all Total score: 0 Depression Screening Interpretation: Negative Depression Screening Done: Yes 22831 - PHQ-9 Billing: Yes Source: Developed by Drs. Tristan Beard, Gabriela Urbano, Rajat Neumann and colleagues, with an educational karishma from [employer]. Thrive Questionnaire Date Thrive assessed: 09/07/24 I am a: Patient What is your living situation today?: I have a steady place to live Within the past 12 months, did the food you bought not last and you didn't have the money to get more?: Never true Within the past 12 months, did you worry whether your food would run out before you got money to buy more?: Never true Do you have trouble paying for medicines?: No Do you have trouble getting transportation to medical appointments?: No Do you have trouble paying your heating and electricity bill?: No Do you have trouble taking care of your child, family member or friend?: No Do you have trouble with day-to-day activities such as bathing, preparing meals, shopping, managing finances, etc.?: No Are you currently unemployed and looking for a job?: No Are you interested in more education?: No Please select the resources that you would like help with: None Currently or been in a relationship where the following occur: No concerns reported THRIVE Score: 0 AUDIT C Alcohol Use Questionnaire (AUDIT-C) 1. How often do you have a drink containing alcohol?: Never 3. How often do you have six or more drinks on one occasion?: Never Total Score: 0 Score Reviewed/Action Taken: Yes ZAHIDA-7 AMB Questionnaire ZAHIDA-7 Date ZAHIDA - 7 assessed: 09/07/24 Feeling nervous, anxious, or on edge: 0 = Not at all Not being able to stop or control worryin = Not at all Worrying too much about different things: 0 = Not at all Trouble relaxin = Not at all Being so restless that it is hard to sit still: 0 = Not at all Becoming easily annoyed or irritable: 0 = Not at all Feeling afraid as if something awful might happen: 0 = Not at all Total ZAHIDA-7 score (0-4 normal; 5-9 mild; 10-14 moderate; 15-21 severe): 0 Source: Developed by Drs. Tristan Beard, Gabriela Urbano, Rajat Neumann and colleagues, with an educational karishma from [employer]. ZAHIDA-7 Assessment Billing ZAHIDA-7 Assessment Tool: ZAHIDA-7 Assessment 50005 Physical exam (Primary Care) Vital Signs: Last Vital Signs Temp 97.8 F 09/07/24 13:56 Pulse 92 09/07/24 13:56 BP 126/80 09/07/24 13:56 Pulse Ox 96 09/07/24 13:56 BMI result Body Mass Index 35.7 Tobacco/Smoking Status: Tobacco use Status Tobacco use date assessed 09/07/24 09/07/24 13:57 Patient Tobacco Use Status Never used Tobacco 09/07/24 13:57 e-Cigarette/Vaping Use Never Used 09/07/24 13:57 PHQ-9: PHQ-9 Score PHQ-9: Total score 0 09/07/24 13:57 Depression Screening Interpretation: Negative Thrive Assessment: Date of Thrive Assessment Date Thrive assessed 09/07/24 09/07/24 13:57 Currently or been in a relationship where the following occur: No concerns reported Coding Level of Care Code Est Pt Level 3 (42842) Diagnoses Low back pain radiating to lower extremity M54.50; M79.606 Additional Codes ZAHIDA-7 Assessment Billing - ZAHIDA-7 Assessment Tool: ZAHIDA-7 Assessment 80679 ([id number]) PHQ-9 - 49125 - PHQ-9 Billing: Yes ([id number]) Assessment & Plan Assessment & Plan (1) Low back pain radiating to lower extremity: Code(s): M54.50 - Low back pain, unspecified; M79.606 - Pain in leg, unspecified Category: Medical Plan .
--- OUTSIDE RECORDS SUMMARY | 2024-09-07 16:00 | XMS_ITS | Encounter Summary ---
Author Organization [employer] Address [address] [place] [address] Care Team Providers Care Quality Associate Name Role Phone Prakash Holm MD Primary Care Provider [phone] Encounter Details Date Type Department Care Team (Latest Contact Info) Description 08/25/2024 1:52 PM EST - 08/25/2024 11:59 PM EST Hospital Encounter [facility] [address] [place] [phone] Left-sided low back pain with bilateral sciatica, [...] 09/09/2024 2:00 PM EDT Office Visit Neurosurgery [facility] [address] [place] [phone] Trung Tran PA [address] [place] [address] documented as of this encounter Procedures Procedure [...] at the L2-3 and L5-S1 levels. Code 07214 -------- FINAL REPORT -------- Dictated By: Quincy Cantu Dictated Date: 08/26/2024 10:39 ET Assigned Physician: Quincy Cantu Reviewed and Electronically Signed By: Quincy Cantu Signed Date: 08/26/2024 10:42 ET Workstation ID: [id number] Transcribed By: Self Edit Transcribed Date: 08/26/2024 [...] degenerative disc disease at the L2-3 and L5-X6ywuedt. Code 88632 -------- FINAL REPORT -------- Dictated By: Quincy Cantu Dictated Date: 08/26/2024 10:39 ET Assigned Physician: Quincy Cantu Reviewed and Electronically Signed By: Quincy Cantu Signed Date: 08/26/2024 10:42 ET Workstation ID: [id number] Transcribed By: Self Edit Transcribed Date: 08/26/2024 10:39 ET [facility] XR PROCEDURES Final Resul t documented in this encounter Visit Diagnoses Diagnosis Left-sided low back pain with bilateral sciatica, unspecified chronicity documented in this encounter Care Teams Quality Associate Relationship Specialty Start Date End Date Prakash Holm MD [address] [place] [address] PCP - General Internal Medicine 05/12/15 documented as of this encounter
--- OUTSIDE RECORDS SUMMARY | 2024-09-07 16:00 | XMS_ITS | Clinical Summary ---
Author Organization [facility] Address [address] [place] [address] Care Team Providers Care Rotary Dump Operator Name Role Phone Unavailable Primary Care Provider [...] 3 - 19 + 3-dose series) 12/12/2002 [id number] ( season) 2024 021, 09/28/2020 Imm-Influenza (#1) 2024 04/05/2014, 1 06/24/2012, 04/24/2012 Alcohol and Drug Screen 06/24/2024 Depression Annual Screen 06/24/2024 Imm-DTaP/Tdap/Td (3 - Td or Tdap) 10/04/2027 018, 04/24/2013 Insurance [facility] [employer] PLAN Member Subscriber Plan / Payer (Ef fective 2020-Present) Name:Rick Seng Relation to Subscriber:Self Name:Seng Cabrera Payer ID:[id number] Group ID:Not on file Type:Medicaid Address: [facility] [address] [place] [address]
--- OUTSIDE RECORDS SUMMARY | 2024-09-07 16:00 | XMS_ITS | Encounter Summary ---
Author Organization [facility] Address [address] [place] [address] Care Team Providers Care M60A2 Armor Crewman Name Role Phone Prakash Holm MD Primary Care Provider [phone] Encounter Details Date Type Department Care Team (Late st Contact Info) Description 08/13/2024 Telephone [facility] [address] [facility] [address] [address] [place] [address] Manda Ortiz MA Social History Tobacco [...] imaging, increased low back pain. Please call [phone] documented in this encounter Plan of Treatment Upcoming Encounters Date Type Department Care Team (Late st Contact Info) Description 09/09/2024 2:00 PM EDT Office Visit Neurosurgery [facility] [address] [place] [phone] Trung Tran PA [address] [place] [address] documented as of this encounter Visit Diagnoses Not on filedocumented in this encounter Care Teams M60A2 Armor Crewman Relationship Specialty Start Date End Date Prakash Holm MD [address] [place] [address] PCP - General Internal Medicine 05/12/15 documented as of this encounter
--- OUTSIDE RECORDS SUMMARY | 2024-09-07 16:00 | XMS_ITS | Encounter Summary ---
Author Organization [employer] Address [address] [place] [address] Care Team Providers Care Etiology Teacher Name Role Phone Prakash Holm MD Primary Care Provider Reason for Visit * Reason Comments Pain Low back pain - left sided Encounter Details Date Type Department Care Team (Late st Contact Info) Description 08/25/2024 3:00 PM EST Consult Neurosurgery [place] [facility] [address] [place] [phone] Trung Tran PA [address] [place] [address] Acute midline low back pain with left-sided [...] spine from today August 25, 2024 at [facility]. These show mild degenerative changes with [...] Holm MD [facility] Neurosurgical [place] documented in this encounter Plan of Treatment Upcoming Encounters Date Type Department Care Team (Late st Contact Info) Description 09/09/2024 2:00 PM EDT Office Visit Neurosurgery [facility] [address] [place] [address] Trung Tran PA [address] [place] [address] documented as of this encounter Visit Diagnoses [...] 08/13/2024 added in this encounter Care Teams Etiology Teacher Relationship Specialty Start Date End Date Prakash Holm MD [address] [place] [address] PCP - General Internal Medicine 05/12/15 documented as of this encounter
--- OUTSIDE RECORDS SUMMARY | 2024-09-07 16:00 | XMS_ITS | Encounter Summary ---
Author Organization [employer] Address [address] [place] [address] Care Team Providers Care Roofer Helper Name Role Phone Prakash Holm MD Primary Care Provider [phone] Reason for Visit * Reason Onset Date Comments Letter for work 09/04/2024 Encounter Details Date Type Department Care Team ([facility] st Contact Info) Description 09/04/2024 Telephone [facility] [address] [place] [address] Lizeth Bautista MA Letter for [...] but light duty. pls call Roz/ at [phone]. documented in this encounter Plan of Treatment Upcoming Encounters Date Type Department Care Team (Late st Contact Info) Description 09/09/2024 2:00 PM EDT Office Visit Neurosurgery [facility] [address] [place] [phone] Trung Tran PA [address] [place] [address] documented as of this encounter Visit Diagnoses Not on filedocumented in this encounter Care Teams Roofer Helper Relationship Specialty Start Date End Date Prakash Holm MD [address] [place] [address] PCP - General Internal Medicine 05/12/15 documented as of this encounter
--- OUTSIDE RECORDS SUMMARY | 2024-09-07 16:00 | XMS_ITS | Clinical Summary ---
Author Organization 175 [facility] Address [address] [place] [address] Phone Care Team Providers Care Trial Justice Name Role Phone Prakash Holm MD Primary Care Provider [phone] Allergies Active Allergy Reactions Criticality Noted Date [...] dropped his end. Since that time Mr. Gonogra has had an increase in his low [...] Department Care Team Description 09/04/2024 Telephone Neurosurgery [facility] [address] [address] Lizeth Bautista MA Letter for work 08/31/2024 Telephone Neurosurgery [facility] [address] [address] Lizeth Bautista MA Advice Only 08/25/2024 3:00 PM EST Consult Neurosurgery [facility] [address] [address] Trung Tran PA Acute midline low back pain with left-sided sciatica (Primary Dx) 08/25/2024 1:52 PM EST - 08/25/2024 11:59 PM EST Hospital Encounter [facility] Xray [address] [place] [address] Left-sided low back pain with bilateral sciatica, unspecified chronicity Discharge Disposition: Home or Self Care 08/13/2024 Telephone Neurosurgery [facility] [address] [place] [address] Manda Ortiz MA from Last [...] 09/09/2024 2:00 PM EDT Office Visit Neurosurgery [facility] [address] [place] [address] Trung Tran PA [address] [address] Health Maintenance Due Date Last Done Comments [...] at the L2-3 and L5-S1 levels. Code 74907 -------- FINAL REPORT -------- Dictated By: Quincy Cantu Dictated Date: 08/26/2024 10:39 ET Assigned Physician: Quincy Cantu Reviewed and Electronically Signed By: Quincy Cantu Signed Date: 08/26/2024 10:42 ET Workstation ID: [id number] Transcribed By: Self Edit Transcribed Date: 08/26/2024 [...] degenerative disc disease at the L2-3 and L5-W0mztbpf. Code 64486 -------- FINAL REPORT -------- Dictated By: Quincy Cantu Dictated Date: 08/26/2024 10:39 ET Assigned Physician: Quincy Cantu Reviewed and Electronically Signed By: Quincy Cantu Signed Date: 08/26/2024 10:42 ET Workstation ID: [id number] Transcribed By: Self Edit Transcribed Date: 08/26/2024 10:39 ET Result [facility] Trung PETERSEN IMG XR PROCEDURES Final Resul t * HIV Screening (04/05/2014) [facility] HIV Screening ABSTRACTED Result [facility] Historical Provider HEALTH MAINTENANCE Final Result * Hepatitis C Screening (04/05/2014) [facility] Hepatitis C Screening ABSTRACTED [facility] Provider HEALTH MAINTENANCE Final Result * Lipid panel (06/08/2013) [facility] LDL/HDL Ratio 3 0 - 4 Triglycerides 107 0 - 150 mg/dL Cholesterol 161 0 - 200 mg/dL HDL 54 >=40 mg/dL LDL Cholesterol 86 0 - 100 mg/dL Blood Venous blood specimen / Unknown Result [facility] Historical Provider LAB BLOOD ORDERABLES Shannon l Result from Last 3 Months or Most Recently Relevant to Health Maintenance Insurance [employer] WC GENERIC Care Teams Trial Justice Relationship Specialty Start Date End Date Prakash Holm MD [address] [place] [address] PCP - General Internal Medicine 05/12/15
--- OUTSIDE RECORDS SUMMARY | 2024-09-07 16:00 | XMS_ITS | Encounter Summary ---
Author Organization [employer] Address [address] [place] [address] Care Team Providers Care Miller Head Wet Process Name Role Phone Prakash Holm MD Primary Care Provider [phone] Reason for Visit * Reason Onset Date Comments Advice Only 08/31/2024 Encounter Details Date Type Department Care Team ([facility] st Contact Info) Description 08/31/2024 Telephone [facility] [address] [place] [address] Lizeth Bautista MA Advice Only [...] results and possible surgery. Pls call at [phone]. documented in this encounter Plan of Treatment Upcoming Encounters Date Type Department Care Team (Late st Contact Info) Description 09/09/2024 2:00 PM EDT Office Visit Neurosurgery [facility] [address] [place] [phone] Trung Tran PA [address] [place] [address] documented as of this encounter Visit Diagnoses Not on filedocumented in this encounter Care Teams Miller Head Wet Process Relationship Specialty Start Date End Date Prakash Holm MD [address] [place] [address] PCP - General Internal Medicine 05/12/15 documented as of this encounter
--- OUTSIDE RECORDS SUMMARY | 2024-09-07 16:00 | XMS_ITS | Clinical Summary ---
Author Organization [employer] [facility] Address [address] [place] [address] Care Team Providers Care Staff Development Manager Name Role Phone Chuck Caro Primary Care Provider [phone] Social History Tobacco Use Types Packs/Day Years [...] age to complete this topic Care Teams Staff Development Manager Relationship Specialty Start Date End Date Chuck Caro [address] [facility] [place] [address] PCP - General Family Medicine 01/14/20
== END 2024-09-07 14:59 | disposition home or self-care (01) ==
LOC: HO.HMCC 13:42
PROVIDERS: PCP Nurse Practitioner Family; Visit Provider Nurse Practitioner Family
DX: M54.50 Low back pain, unspecified (principal); M79.606 Pain in leg, unspecified

== ENCOUNTER → 2024-09-07 13:41 | Outpatient (BNVA) | payer OTHER, SELFPAY | PROVIDERS: PCP Nurse Practitioner Family; Visit Provider Nurse Practitioner Family | DX: M54.50 Low back pain, unspecified (principal) | CPT/HCPCS: 96127; 99212 ==

== ENCOUNTER 2024-10-07 11:14 | Outpatient (AMB) | payer OTHER, SELFPAY ==
--- NOTE | 2024-10-07 11:15 | A.OFFVIS_ITS ---
Intake Visit Reasons: lab follow up Intake Note: Patient is present for LAB F/U Urology Medication:NONE Antibiotic Allergy:PENICILLIN V Blood Thinner:NONE [employer] Required: No Allergies penicillin V Allergy (Unknown, Verified 10/07/24 11:26) Rash Medication List - Last Reconciled 10/07/24 by SUJEY Scott- cholecalciferol (vitamin D3) 50 mcg PO DAILY ibuprofen mg PO meloxicam 15 mg PO DAILY 30 days omega-3 fatty acids (Fish Oil Concentrate) 1,000 mg PO DAILY tramadol 50 mg PO BID PRN 3 days HPI Comments Details: Seng is a very pleasant 38-year-old male patient of . He has a past medical history of chronic SI joint pain. 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 In discussion with the patient today he reports feeling low-dose Cialis 5 mg daily has been helpful. He reports feeling he has more energy in the morning. He does however discuss recently hurting his back at work and is undergoing physical therapy and has been on light duty. Recent testosterone results reviewed with the patient today as noted and trended below: Testosterone: 01/14 173, 03/17 313, 09/15 312 Free testosterone: 01/14 18.9, 03/17 50.4, 09/15 53.0 Estradiol: 03/17 18 LH: 03/17 10.7 FSH: 03/17 22.7 Prolactin 03/17 7.3 SHB/24 39 He does have a previous history of anabolic steroid use in the past. He otherwise denies any bothersome urinary issues. He denies urinary urgency, urinary frequency, incontinence, nocturia, hematuria, dysuria, foul smelling urine, changes to urinary stream, flank pain, fever, and or chills. He is happy with his current voiding parameters. We discussed at length potential causes of hypogonadism in the setting of previous anabolic steroid use. We discussed continuation of low-dose Cialis verses other treatment options and risks and benefits of these treatment options. All questions were answered. He otherwise denies any bothersome urinary issues or concerns. Plan The treatment plan centers on the effective continuation of daily Cialis for borderline hypogonadism, supported by the patient's reported improvements in symptoms. The patient will continue modifying his lifestyle, supporting optimal treatment outcomes. Plans include a follow-up visit in six months with testosterone lab work to evaluate ongoing treatment efficacy. The patient is advised to maintain healthy sleep, physical activity, and dietary routines. Considerations for back injury recovery include ongoing physical therapy. Patient was informed and verbally consented to the use of an ambient scribe for clinic note documentation during this visit. Discussion Notes I discussed the ongoing use of Cialis for borderline hypogonadism, explaining its benefits observed by the patient. We addressed the unchanged total testosterone levels but recognized the increase in free testosterone receptor sites as well as improved symptoms reported by patient. The prescribed Cialis supports this with daily use, and the patient consented. We discussed updating the patient's prescription, ensuring availability, and reinforced strategies for lifestyle modifications to improve overall health. The patient agrees with follow-ups scheduled every six months unless otherwise needed. Anticipatory guidance was provided regarding the management of his energy levels and continued therapy for back pain. FORMERLY [facility], [facility] Medical History Chronic SI joint pain Surgical History History of knee surgery History of wisdom tooth extraction Family History Father HTN (hypertension) Mother Diabetes mellitus Maternal Grandmother History of heart attack Maternal Grandfather Diabetes mellitus Paternal Grandfather Unknown family medical history Paternal Grandmother Unknown family medical history Paternal Uncle Cancer Brother No problems noted. Brother No problems noted. Son No problems noted. Social History Housing: House Alcohol intake: current Alcohol intake frequency: holidays/special occasions only Patient Tobacco Use Status: Never used Tobacco e-Cigarette/Vaping Use: Never Used Second Hand Smoke Exposure: No service: No Current occupational status: employed Current occupational exposures/hazards: No Cognitive needs: No Hearing needs: No Vision needs: No Review of Systems Const All systems reviewed & are unremarkable except as noted in HPI and below Physical Exam Const General: cooperative Orientation/consciousness: patient oriented x3 Resp Effort & Inspection: able to speak in complete sentences Neuro General: patient oriented x3 Psych Speech and movement: Clear speech present Attitude: cooperative Thought process: Normal thought process present Thought content: Normal thought content present Insight: Fair insight present (Psych) Judgement: Fair judgement present (Psych) Telehealth Telehealth Telehealth Platform: [employer] Location of provider rendering services: practice address Location of patient: address on file Patient Identification confirmed using: Name, : Yes Telehealth method: voice only Patient verbally consented to treatment: Yes Patient verbally consented to billing insurance company: Yes Patient informed of any privacy concerns related to visit: Yes Minutes spent on Phone/Video with Pt.: 15 Assessment & Plan Assessment & Plan (1) Low testosterone: Code(s): R79.89 - Other specified abnormal findings of blood chemistry Category: Medical Plan Recent testosterone and free testosterone results reviewed with the patient today; as noted above. Will continue with low-dose Cialis 5 mg daily; refill provided. He reports be happy with current voiding parameters. He denies any bothersome urinary issues or concerns. We discussed continuation of lifestyle modifications to assist with borderline hypogonadism. Will obtain testosterone free and total in 6 months. Follow-up in 6 months with lab to be completed prior; or sooner with any issues, concerns, and or questions. Orders: Orders Testosterone, Free/Total Today R79.89 - Other specified abnormal findings of blood chemistry Medications: Refilled tadalafil (Cialis) PIPPA N Group [facility] [id number] 5 mg PO DAILY 90 days 90 tabs 1RF Patient Instructions: The patient had an opportunity to ask questions regarding the treatment plan. All questions were answered. Physical exam, labs, and imaging were discussed and reviewed in detail. As well as risks, benefits, and discussion of treatment choices. No major barriers to understanding were identified. The patient expressed understanding and agreement with the above treatment plan. The patient was made aware they should contact our office by phone for worsening of their current condition, the appearance of new symptoms, or with any questions or concerns. Compliance is encouraged with any medications and follow up testing that is ordered. It is a privilege to be allowed the opportunity to participate in? your urological care.? Again, if you have any questions or concerns If you have any questions or concerns please do not hesitate to contact me. The office is [phone]. This note is constructed using voice recognition software. While every effort has been made to ensure accuracy hospice aide errors may have been included. Yours sincerely, MEIR ScottP-BC Coding Level of Care Code Tele Est Pt Level 3 (06681) Diagnoses Low testosterone R79.89 Time Spent (min) 15
--- OUTSIDE RECORDS SUMMARY | 2024-10-07 13:34 | XMS_ITS | Clinical Summary ---
Author Organization [facility] Address [address] [place] [address] Care Team Providers Care Shoe Stock Associate Name Role Phone Unavailable Primary Care Provider Unavailabl e Source Comments PLEASE NOTE, if this patient is a minor, it may be UNLAWFUL to discuss sensitive information that is contained in these records (such as FAMILY PLANNING, MENTAL HEALTH or SUBSTANCE ABUSE) with the minor patient's parent or other person without the patient's specific authorization.[facility] Immunizations Immunization Administration Dates Next Due Moderna COVID-19 Vaccine, [...] Health Maintenance Due Date Last Done Comments Anxiety Screening 1985 Diabetes Screening 1985 Hepatitis C Screening 1985 Lipid Screening 1985 Tobacco Screening 1985 HIV Screening 12/12/1998 Hypertension Screening (#1) 12/12/2001 Imm-Hepatitis B (1 of 3 - 19 + 3-dose series) 12/12/2002 [id number] (3 - 2024-25 season) 2024 021, 09/28/2020 Imm-Influenza (#1) 2024 04/05/2014, 1 06/24/2012, 04/24/2012 Alcohol and Drug Screen 06/24/2024 Depression Annual Screen 06/24/2024 Imm-DTaP/Tdap/Td (3 - Td or Tdap) 10/04/2027 018, 04/24/2013 Insurance [facility] [employer] Member Subscriber Plan / Payer (Ef fective 2020-Present) Name:Seng Cabrera Relation to Subscriber:Self Name:Rick Seng Payer ID:[id number] Group ID:Not on file Type:Medicaid Address: [facility] [address] [place] [address]
--- OUTSIDE RECORDS SUMMARY | 2024-10-07 13:34 | XMS_ITS | Encounter Summary ---
Author Organization [employer] Address [address] [place] [address] Care Team Providers Care Nuclear Physicist Name Role Phone Prakash Holm MD Primary Care Provider [phone] Reason for Visit * Therapy (Routine) - Authorized Specialty Diagnoses / Procedures Referred By Lucía montgomery Referred To Contact Physical Therapy Diagnoses Acute midline low back pain with left-sided sciatica Trung Tran PA [address] [address] Phone: tel: fax: Referral ID Status Reason Start Date Expiration Date Visits Requested Visits Authorized [id number] Authorized Consult and Treat 09/09/2024 09/09/2025 9 9 Encounter Details Date Type Department Care Team (Late st Contact Info) Description 10/06/2024 1:30 PM EDT Treatment [address] [phone] Jerry Tracey PTA Acute midline low back pain with left-sided [...] as of this encounter Progress Notes * Jerry Tracey PTA - 10/06/2024 1:30 PM EDT [facility] - Outpatient PHYSICAL THERAPY DAILY TREATMENT NOTE - OP Date: 10/06/2024 Visit Number: 2 Patient Name: Seng Cabrera : 1985 Age: 38 y.o. Gender: male Diagnosis: ICD-10-CM ICD-9-CM 1. Acute midline low back pain with left-sided sciatica M54.42 724.2 724.3 Date of Onset/Surgery: 07/30/2024 Referring Provider: Trung Tran PA Insurance: Payor: GENERIC / Plan: GENERIC / Product Type: Indemnity / Patient Identified by: Jerry Tracey PTA Language: Speaks and understands Japanese as preferred language with no chicken vaccinator required Medications: Current Outpatient Medications on File Prior to Visit Medication Sig Dispense Refill cyclobenzaprine (FLEXERIL) 10 mg tablet Take 1 tablet (10 mg total) by mouth 3 (three) times a day if needed. (Patient not taking: Reported on 08/25/2024) ibuprofen (ADVIL,MOTRIN) 800 mg tablet Take 1 tablet (800 mg total) by mouth 3 (three) times a day if needed. with food (Patient not taking: Reported on 08/25/2024) lidocaine (LIDODERM) 5 % patch meloxicam (MOBIC) 15 mg tablet Take 1 tablet (15 mg total) by mouth 1 (one) time each day. (Patientnot taking: Reported on 08/25/2024) naproxen (NAPROSYN) 500 mg tablet tadalafiL (CIALIS) 5 mg tablet Take 1 tablet (5 mg total) by mouth 1 (one) time each day. for 90 days (Patient not taking: Reported on 08/25/2024) tolnaftate (TINACTIN) 1 % external solution Apply topically to toenails (Patient not taking: Reported on 08/25/2024) traMADoL (ULTRAM) 50 mg tablet TAKE 1 TABLET BY MOUTH TWICE A DAY NEEDED FOR PAIN FOR 3 DAYS zolpidem (AMBIEN) 10 mg tablet Take 1 tablet (10 mg total) by mouth at bedtime as needed. Max DailyAmount: 10 mg (Patient not taking: Reported on 08/25/2024) No current facility-administered medications on file prior to visit. Allergies: is allergic to penicillins. Precautions: none Fall risk: No SUBJECTIVE Subjective Report: Pt states low back pain is getting a little better. Still gets aggravated with sitting. Chart Reviewed: Yes Pain: 4-5/10 currently. Higher level when first waking up in AM TREATMENT INTERVENTION: Treadmill x 4 mins at 1.2 MPH for warm-up Standing R and L HS and hip flexor stretch, 2x30 secs ea HL piriformis stretch, 2x30 secs ea HL hip abd vs blue tband, 10 x 5 secs ea HL marching with abdom bracing, blue tband x 10 B Supine abdom bracing, one knee bent with head lift x 6 x 10 secs ea Seated R and L T/L SB stretch with opp arm overhead, 3x10 secs ea side ASSESSMENT/Response to Treatment Good No increased pain with above exs Patient Education: Education provided: POC/ home exercise program review Education Provided To: Patient utilizing Explanation mode(s) of education Response to Education: Verbal Understanding PLAN POC Development/Review: No Change in the Plan of Care; Participants: Patient Interventions Time Entry: Modalities: Therapeutic procedures: Therapeutic Exercise Time Entry: 30 Total Treatment Time: 30 Documentation completed by Jerry Tracey PTA documented in this encounter Plan of Treatment Upcoming Encounters Date Type Department Care Team (Late st Contact Info) Description 10/13/2024 1:30 PM EDT Treatment [facility] [address] [address] Jerry Tracey PTA 10/15/2024 12:30 PM EDT Treatment [facility] [address] [address] Mauricio Harrison PTA 10/20/2024 1:30 PM EDT Treatment [facility] [address] [address] Mauricio Harrison PTA 10/22/2024 1:30 PM EDT Treatment [facility] [address] [address] Mauricio Harrison PTA 10/27/2024 1:30 PM EDT Treatment [facility] [address] [address] Codi Mcneal PT 10/29/2024 1:30 PM EDT Treatment [facility] [address] [address] Mauricio Harrison PTA 11/02/2024 1:30 PM EDT Treatment [facility] [address] [phone] Codi Mcneal PT documented as of this encounter Goals Goal Patient Goal Type Associated Problems Recent Progress Patient-Stated? Author LTG - 8 visits General No Codi Mcneal PT Note: Patient reports subjective decrease in low back pain Patient is able to achieve 60 degrees of lumbar flexion Patient is able to achieve 10 degrees of lumbar extension Slight myofascial restriction to bilateral erector spinae and QL Slight QL flexibility restriction bilaterally Patient is independent and compliant with HEP documented as of this encounter Visit Diagnoses Diagnosis Acute midline low back pain with left-sided sciatica- Primary documented in this encounter Care Teams Nuclear Physicist Relationship Specialty Start Date End Date Prakash Holm MD [address] [place] [address] PCP - General Internal Medicine 05/12/15 documented as of this encounter
--- OUTSIDE RECORDS SUMMARY | 2024-10-07 13:34 | XMS_ITS | Clinical Summary ---
Author Organization [facility] Address [address] [place] [address] Phone Care Team Providers Care Road Oiling Truck Driver Name Role Phone Prakash Holm MD Primary Care Provider [phone] Allergies Active Allergy Reactions Criticality Noted Date [...] left-sided scia josie 08/25/2024 Assessment & Plan (09/09/2024 2:38 PM EDT): Fransisca continues with low back pain and radiation to the left leg. Most of the leg pain is in the posterior thigh and calf but he gets a little bit of tingling in the anterior thigh. He has completed a course of physical therapy and takes NSAIDs. Unfortunately his pain has persisted. It is time to order an MRI to better understand his situation. In addition, he asked for a new prescription to go back to therapy and I will supply that. Assessment & Plan (08/25/2024 3:59 PM EST): [...] Encounters Date Type Department Care Team Description 10/06/2024 1:30 PM EDT Treatment [address] [address] Jerry Tracey, LUIS ARMANDO Acute midline low back pain with left-sided sciatica (Primary Dx) 09/29/2024 11:00 AM EDT Evaluation [address] [address] Codi Mcneal, DAYLIN Acute midline low back pain with left-sided sciatica 09/23/2024 Telephone Neurosurgery [facility] [address] [address] Trung Tran PA 09/21/2024 11:59 AM EDT - 09/21/2024 11:59 PM EDT Hospital Encounter [facility] MRI [address] [place] [address] Acute midline low back pain with left-sided sciatica Discharge Disposition: Home or Self Care 09/17/[address] [address] Lizeth Bautista [place] Appointment (W/C approval #[id number] for L/Spine MRI faxed over to [facility]. Radiology will contact Roz/ w/appt. ) 09/09/2024 2:00 PM EDT Office Visit [address] [address] Trung Tran PA Acute midline low back pain with left-sided sciatica (Primary Dx) 09/04/[address] [address] Lizeth Bautista MA Letter for work 08/31/[address] [address] Lizeth Bautista MA Advice Only 08/25/2024 3:00 PM EST Consult [address] [address] Trung Tran PA Acute midline low back pain with left-sided sciatica (Primary Dx) 08/25/2024 1:52 PM EST - 08/25/2024 11:59 PM EST Hospital Encounter [facility] Xray [address] [place] [address] Left-sided low back pain with bilateral sciatica, unspecified chronicity Discharge Disposition: Home or Self Care 08/13/2024 Telephone [facility]surgery [facility] [place] [facility] [address] [place] [address] Manda Saba MA from Last 3 Months Immunizations Name [...] - - Weight 104 kg (230 lb) 09/09/2024 1:41 PM EDT Height 177.8 cm (5' 10 ) 09/09/2024 1:41 PM EDT Body Mass Index 33 09/09/2024 1:41 PM EDT Plan of Treatment Upcoming Encounters Date Type Department Care Team (Late st Contact Info) Description 10/13/2024 1:30 PM EDT Treatment [facility] [address] [place] [address] Jerry Tracey PTA 10/15/2024 12:30 PM EDT Treatment [facility] [address] [address] Mauricio Harrison, SOAP MAKER 10/20/2024 1:30 PM EDT Treatment [facility] [address] [address] Mauricio Harrison, SOAP MAKER 10/22/2024 1:30 PM EDT Treatment [facility] [address] [address] Mauricio Harrison, SOAP MAKER 10/27/2024 1:30 PM EDT Treatment [facility] [address] [address] Codi Mcneal, PT 10/29/2024 1:30 PM EDT Treatment [facility] [address] [address] Mauricio Harrison, SOAP MAKER 11/02/2024 1:30 PM EDT Treatment [facility] [address] [address] Codi Mcneal, PT Health Maintenance Due Date Last Done Comments Hepatitis B Vaccines (1 of 3 - 19+ 3-dose series) 12/12/2002 DTaP,Tdap,and Td Vaccines (2 - Td or Tdap) 04/24/2023 04/24/2013 COVID-19 Vaccine (3 - 2023-2 5 season) 2024 10/26/2020, 09/28/2020 Cholesterol Screening (Lipid Panel) 08/13/2024 06/08/2013 Depression Screening 08/13/2024 Social Influencers of Health Screening 08/13/2024 Influenza Vaccine (Season Ended) 2025 04/05/2014, 04/24/2013, 04/24/2012 HIV Screening Completed 04/05/2014 Hepatitis C Screening [...] age to complete this topic Meningococcal B Vaccine Aged Out No l onger eligible based on patient's age to complete [...] on patient's age to complete this topic Goals Goal Patient Goal Type Associated Problems Recent Progress Patient-Stated? Author LTG - 8 visits General No Codi Mcneal, DAYLIN Note: Patient reports subjective decrease in low back pain Patient is able to achieve 60 degrees of lumbar flexion Patient is able to achieve 10 degrees of lumbar extension Slight myofascial restriction to bilateral erector spinae and QL Slight QL flexibility restriction bilaterally Patient is independent and compliant with HEP Procedures Procedure Name Priority Date/Time Associated Diagnosis Comments MR LUMBAR SPINE WO CONTRAST Routine 09/21/2024 1:13 PM EDT Acute midline low back pain with left-sided sciatica XR LUMBAR SPINE 4+ VIEWS Routine 08/25/2024 2:07 PM EST Left-sided low back pain with bilateral sciatica, unspecified chronicity HEPATITIS C SCREENING Routine 04/05/2014 HIV SCREENING Routine 04/05/2014 LIPID PANEL Routine 06/08/2013 from Last 3 Months or Most Recently Relevant to Health Maintenance Results * MR Lumbar Spine wo Contrast (09/21/2024 1:13 PM EDT) Anatomical Region Laterality Modality L-spine, Spine Magnetic Resonan ce 09/21/2024 1:51 PM EDT Impressions 09/21/2024 2:22 PM EDT 1. ??No acute traumatic findings. 2. ??Degenerative changes as detailed above. -------- FINAL REPORT -------- Dictated By: Christos Trevino Dictated Date: 09/21/2024 13:51 ET Assigned Physician: Christos Trevino Reviewed and Electronically Signed By: Christos Trevino Signed Date: 09/21/2024 14:22 ET Workstation ID: [id number] Transcribed By: Self Edit Transcribed Date: 09/21/2024 13:51 ET Narrative 09/21/2024 2:22 PM EDT PROCEDURE: MRI of the lumbar spine without contrast. TECHNIQUE: Multiplanar multisequence MRI of the lumbar spine without intravenous contrast administration. HISTORY: Low back pain, > 6 wks Low back pain, no red flags Low back pain and left leg pain in an S1 distribution COMPARISON: Chest dated 425. FINDINGS: The paraspinous soft tissues are normal. Normal alignment. ??No compression deformity. ??Modic endplate changes at L5-S1. ??No concerning marrow infiltrative lesion. ??Modic endplate changes at L5-S1. ??Small Schmorl's node along the inferior L2 endplate. Normal position of the conus at T12-L1. ??There is suggestion of an area of T2 signal abnormality in the cord at the level of the inferior T11 endplate on the sagittal STIR sequence. ??This is not replicated on the sagittal nonfat suppressed T2- weighted sequence Lumbar disc levels: L1-2: Only imaged in the sagittal plane. ??Minimal endplate irregularity. ??No spinal or foraminal stenosis. L2-3: Mild disc space height loss and moderate endplate irregularity. ??Small anterior endplate osteophytes. ??No spinal or foraminal stenosis. L3-4: Minimal endplate irregularity. ??No spinal or foraminal stenosis. L4-5: Minimal endplate irregularity. ??Slight widening of the right facet joint suggesting mild hypermobility. ??Mild right and minimal left facet arthropathy. ??No spinal or foraminal stenosis. L5-S1: Moderate disc space height loss and endplate irregularity. ??Small disc osteophyte complex with a superimposed small left central focal protrusion. ??Mild bilateral facet arthropathy. ??Minimal bilateral foraminal stenosis. ??No spinal stenosis. ??Hypertrophic changes of the left facet joint results in mild left lateral recess stenosis. Procedure Note Christos Trevino MD - 09/21/2024 PROCEDURE: MRI of the lumbar spine without contrast. TECHNIQUE: Multiplanar multisequence MRI of the lumbar spine withoutintravenous contrast administration. HISTORY: Low back pain, > 6 wks Low back pain, no red flags Low back pain and left leg pain in an S1 distribution COMPARISON: Chest dated 425. FINDINGS: The paraspinous soft tissues are normal. Normal alignment. No compression deformity. Modic endplate changes atL5-S1. No concerning marrow infiltrative lesion. Modic endplate changesat L5-S1. Small Schmorl's node along the inferior L2 endplate. Normal position of the conus at T12-L1. There is suggestion of an area ofT2 signal abnormality in the cord at the level of the inferior [id number] on the sagittal STIR sequence. This is not replicated on thesagittal nonfat suppressed T2-weighted sequence Lumbar disc levels: L1-2: Only imaged in the sagittal plane. Minimal endplate irregularity.No spinal or foraminal stenosis. L2-3: Mild disc space height loss and moderate endplate irregularity.Small anterior endplate osteophytes. No spinal or foraminal stenosis. L3-4: Minimal endplate irregularity. No spinal or foraminal stenosis. L4-5: Minimal endplate irregularity. Slight widening of the right facetjoint suggesting mild hypermobility. Mild right and minimal left facetarthropathy. No spinal or foraminal stenosis. L5-S1: Moderate disc space height loss and endplate irregularity. Smalldisc osteophyte complex with a superimposed small left central focalprotrusion. Mild bilateral facet arthropathy. Minimal bilateralforaminal stenosis. No spinal stenosis. Hypertrophic changes of the leftfacet joint results in mild left lateral recess stenosis. IMPRESSION: 1. No acute traumatic findings. 2. Degenerative changes as detailed above. -------- FINAL REPORT -------- Dictated By: Christos Trevino Dictated Date: 09/21/2024 13:51 ET Assigned Physician: Christos Trevino Reviewed and Electronically Signed By: Christos Trevino Signed Date: 09/21/2024 14:22 ET Workstation ID: [id number] Transcribed By: Self Edit Transcribed Date: 09/21/2024 13:51 ET us Trung PETERSEN IMG MRI PROCEDURES Final Resu lt * XR Lumbar Spine 4+ Views (08/25/2024 [...] at the L2-3 and L5-S1 levels. Code 31567 -------- FINAL REPORT -------- Dictated By: Quincy Cantu Dictated Date: 08/26/2024 10:39 ET Assigned Physician: Quincy Cantu Reviewed and Electronically Signed By: Quincy Cantu Signed Date: 08/26/2024 10:42 ET Workstation ID: [id number] Transcribed By: Self Edit Transcribed Date: 08/26/2024 [...] degenerative disc disease at the L2-3 and L5-B8tskpos. Code 78487 -------- FINAL REPORT -------- Dictated By: Quincy Cantu Dictated Date: 08/26/2024 10:39 ET Assigned Physician: Quincy Cantu Reviewed and Electronically Signed By: Quincy Cantu Signed Date: 08/26/2024 10:42 ET Workstation ID: [id number] Transcribed By: Self Edit Transcribed Date: 08/26/2024 10:39 ET Result [facility] Trung PETERSEN IMG XR PROCEDURES Final Resul t * HIV Screening (04/05/2014) [facility] HIV Screening ABSTRACTED Result [facility] Historical Provider HEALTH MAINTENANCE Final Result * Hepatitis C Screening (04/05/2014) [facility] Hepatitis C Screening ABSTRACTED Result [facility] Historical Provider HEALTH MAINTENANCE Final Result * Lipid panel (06/08/2013) [facility] LDL/HDL Ratio 3 0 - 4 Triglycerides 107 0 - 150 mg/dL Cholesterol 161 0 - 200 mg/dL HDL 54 >=40 mg/dL LDL Cholesterol 86 0 - 100 mg/dL Blood Venous blood specimen / Unknown Historical Provider LAB BLOOD ORDERABLES Shannon l Result from Last 3 Months or Most Recently Relevant to Health Maintenance Insurance [employer] Oiling Truck Driver Relationship Specialty Start Date End Date Prakash Holm MD [address] [place] [address] PCP - General Internal Medicine 05/12/15
--- OUTSIDE RECORDS SUMMARY | 2024-10-07 13:35 | XMS_ITS | Clinical Summary ---
Author Organization [facility] Address [address] [place] [address] Care Team Providers Care Portrait Consultant Name Role Phone Chuck Caro Primary Care Provider Social History Tobacco Use Types Packs/Day Years [...] age to complete this topic Care Teams Portrait Consultant Relationship Specialty Start Date End Date Chuck Caro [address] [facility] [address] PCP - General Family Medicine 01/14/20
== END 2024-10-07 13:22 | disposition home or self-care (01) ==
LOC: HO.HUSH 11:15
PROVIDERS: PCP Nurse Practitioner Family; Visit Provider Nurse Practitioner Family
DX: R79.89 Other specified abnormal findings of blood chemistry (principal)
CPT/HCPCS: 99213

== ENCOUNTER → 2024-10-07 11:14 | Outpatient (BNVA) | payer OTHER, SELFPAY | PROVIDERS: PCP Nurse Practitioner Family; Visit Provider Nurse Practitioner Family | DX: R79.89 Other specified abnormal findings of blood chemistry (principal) ==

== ENCOUNTER 2024-10-20 13:02 | Outpatient (AMB) | payer OTHER, SELFPAY ==
[2024-10-20 13:13] VITALS: BP 128/80; PULSE 71; O2SAT 96; BMI 35.3
--- NOTE | 2024-10-20 13:13 | A.OFFPC_ITS ---
Vital Signs 10/20/24 13:13 Height 5 ft 9 in Weight 239 lb BMI 35.3 BP 128/80 Blood Pressure Location Lt brachial Position Sitting Pulse 71 Pulse Source Pulse Oximeter Pulse Oximetry (%) 96 Oxygen Delivery Method Room Air Intake Visit Reasons: 6 month follow up Allergies penicillin V Allergy (Unknown, Verified 10/20/24 13:13) Rash Medication List - Last Reconciled 10/20/24 by MEIR BarahonaP- cholecalciferol (vitamin D3) 50 mcg PO DAILY ibuprofen mg PO omega-3 fatty acids (Fish Oil Concentrate) 1,000 mg PO DAILY Tobacco use date assessed: 09/07/24 Dental Screening Dental Screen Date: 09/07/24 HPI 6 month follow up HPI Details Chief Complaint Patient is experiencing difficulty with weight loss despite a strict diet and regular exercise routine. History of Present Illness The patient is a 38-year-old male presenting with difficulty in losing weight. He adheres to a strict dietary plan and exercises regularly at the gym, yet he struggles to reduce weight. This concern relates to his existing diagnosis of obesity, which has been an ongoing challenge. During the visit, I discussed the potential use of a GLP-1 agonist medication, emphasizing the need for the patient to contact his insurance provider to confirm coverage before proceeding. The patient plans to follow up on this and provide information regarding insurance feedback. Social History - Exercise: Regular gym attendance. - Nutritional Intake: Strict diet plan i n place. - Weight Management: Challenges with eff ective weight loss, despite adherence to diet and exercise regimen. Health Maintenance - Discussion on the potential use of GLP -1 agonists for weight management. - Encouragement to obtain fasting labs f or further assessment. Review of Systems - General: Reports difficulty with weigh t loss. Physical Exam General: Cooperative, healthy appearing, comfortable, no acute distress and well developed, obese Orientation: Patient oriented x3 Limitations: No limitations Head: Normal to inspection Ears: Hearing grossly normal bilaterally Nose: Normal external nose present Face and sinus: Normal facial exam Eyes: Appearance normal, both eyes and all related structures Neck: Normal visual inspection and Yes full ROM Respiratory: Normal respiratory effort and able to speak in complete sentences. Clear to auscultation bilaterally Cardiovascular: Regular rate and rhythm. Normal S1 and S2 GI: Normal to inspection. Soft to palpation and nontender Skin: No rashes or lesions noted Neuro: Patient oriented x3 Extremities: Normal to inspection Results Plan The plan in this visit addressed the patient's obesity management. I considered prescribing a GLP-1 agonist, contingent on the confirmation of insurance coverage. The importance of regular follow-up and communication about the insurance information was emphasized. Additionally, fasting labs were suggested to aid in further understanding of the patient's metabolic health. Discussion Notes I discussed with the patient the use of a GLP-1 agonist as a pharmacological option to assist in weight management. The patient was informed about the need to verify insurance coverage prior to prescribing this medication. We also discussed the significance of obtaining fasting laboratory results to assess metabolic functions. I encouraged continued communication via the patient portal to share any updates regarding insurance feedback. The patient was made aware of the importance of these steps in the overall management of his obesity. Patient Instructions - Confirm insurance coverage for GLP-1 a gonist. - Obtain and provide information on fast ing lab results for further evaluation. - Keep communication open via the [employer] portal regarding insurance coverage updates. [facility] Medical History Chronic SI joint pain Surgical History History of knee surgery History of wisdom tooth extraction Family History Father HTN (hypertension) Mother Diabetes mellitus Maternal Grandmother History of heart attack Maternal Grandfather Diabetes mellitus Paternal Grandfather Unknown family medical history Paternal Grandmother Unknown family medical history Paternal Uncle Cancer Brother No problems noted. Brother No problems noted. Son No problems noted. Social History Housing: House Alcohol intake: current Alcohol intake frequency: holidays/special occasions only Patient Tobacco Use Status: Never used Tobacco e-Cigarette/Vaping Use: Never Used Second Hand Smoke Exposure: No service: No Current occupational status: employed Current occupational exposures/hazards: No Cognitive needs: No Hearing needs: No Vision needs: No Questionnaire PHQ-9 Over the last 2 weeks, how often have you been bothered by any of the following problems? 1. Little interest or pleasure in doing things: not at all 2. Feeling down, depressed, or hopeless: not at all 3. Trouble falling or staying asleep, or sleeping too much: not at all 4. Feeling tired or having little energy: not at all 5. Poor appetite or overeating: not at all 6. Feeling bad about yourself - or that you are a failure or have let yourself or your family down: not at all 7. Trouble concentrating on things, such as reading the newspaper or watching television: not at all 8. Moving or speaking so slowly that other people could have noticed. Or the opposite - being so fidgety or restless that you have been moving around a lot more than usual: not at all 9. Thoughts that you would be better off or of hurting yourself in some way: not at all Total score: 0 Depression Screening Interpretation: Negative Depression Screening Done: Yes 37349 - PHQ-9 Billing: Yes Source: Developed by Drs. Tristan Beard, Gabriela Urbano, Rajat Neumann and colleagues, with an educational karishma from [employer]. Thrive Questionnaire Date Thrive assessed: 09/07/24 I am a: Patient What is your living situation today?: I have a steady place to live Within the past 12 months, did the food you bought not last and you didn't have the money to get more?: Never true Within the past 12 months, did you worry whether your food would run out before you got money to buy more?: Never true Do you have trouble paying for medicines?: No Do you have trouble getting transportation to medical appointments?: No Do you have trouble paying your heating and electricity bill?: No Do you have trouble taking care of your child, family member or friend?: No Do you have trouble with day-to-day activities such as bathing, preparing meals, shopping, managing finances, etc.?: No Are you currently unemployed and looking for a job?: No Are you interested in more education?: No Please select the resources that you would like help with: None Currently or been in a relationship where the following occur: No concerns reported THRIVE Score: 0 AUDIT C Alcohol Use Questionnaire (AUDIT-C) 1. How often do you have a drink containing alcohol?: Never 3. How often do you have six or more drinks on one occasion?: Never Total Score: 0 Score Reviewed/Action Taken: Yes ZAHIDA-7 AMB Questionnaire ZAHIDA-7 Date ZAHIDA - 7 assessed: 09/07/24 Feeling nervous, anxious, or on edge: 0 = Not at all Source: Developed by Drs. Tristan Beard, Gabriela Urbano, Rajat Neumann and colleagues, with an educational karishma from [employer]. Physical exam (Primary Care) Vital Signs: Last Vital Signs Pulse 71 10/20/24 13:13 BP 128/80 10/20/24 13:13 Pulse Ox 96 10/20/24 13:13 Oxygen Delivery Method Room Air 10/20/24 13:13 BMI result Body Mass Index 35.3 Tobacco/Smoking Status: Tobacco use Status Tobacco use date assessed 09/07/24 10/20/24 13:14 Patient Tobacco Use Status Never used Tobacco 10/20/24 13:14 e-Cigarette/Vaping Use Never Used 10/20/24 13:14 PHQ-9: PHQ-9 Score PHQ-9: Total score 0 10/20/24 13:14 Depression Screening Interpretation: Negative Thrive Assessment: Date of Thrive Assessment Date Thrive assessed 09/07/24 10/20/24 13:14 Currently or been in a relationship where the following occur: No concerns reported Coding Level of Care Code Est Pt Level 3 (10028) Diagnoses Weight gain R63.5 Obesity E66.9 Additional Codes PHQ-9 - 49120 - PHQ-9 Billing: Yes ([id number]) Assessment & Plan Assessment & Plan (1) Weight gain: Code(s): R63.5 - Abnormal weight gain Category: Medical (2) Obesity: Code(s): E66.9 - Obesity, unspecified Category: Medical Plan . Orders: Orders Complete Blood Count Auto Diff Today E66.9 - Obesity, unspecified, R63.5 - Abnormal weight gain Comprehensive [place]. Panel Fast Today E66.9 - Obesity, unspecified, R63.5 - Abnormal weight gain TSH reflex Free T4 Today E66.9 - Obesity, unspecified, R63.5 - Abnormal weight gain UA CC w/rflx Micro + Cult Today E66.9 - Obesity, unspecified, R63.5 - Abnormal weight gain Lipid Panel Today E66.9 - Obesity, unspecified, R63.5 - Abnormal weight gain
--- OUTSIDE RECORDS SUMMARY | 2024-10-20 15:01 | XMS_ITS | Encounter Summary ---
Author Organization [facility] Address [address] [place] [address] Care Team Providers Care Duster Tender Name Role Phone Prakash Holm MD Primary Care Provider [phone] Reason for Visit * Therapy (Routine) - Authorized Specialty Diagnoses / Procedures Referred By Lucía montgomery Referred To Contact Physical Therapy Diagnoses Acute midline low back pain with left-sided sciatica Trung Tran PA [address] [address] Phone: tel: fax: Referral ID Status Reason Start Date Expiration Date Visits Requested Visits Authorized [id number] Authorized Consult and Treat 09/09/2024 09/09/2025 9 9 Encounter Details Date Type Department Care Team (Late st Contact Info) Description 10/15/2024 12:30 PM EDT Treatment [address] [phone] Mauricio Harrison PTA Acute midline low back pain with [...] as of this encounter Progress Notes * Mauricio Harrison PTA - 10/15/2024 12:30 PM EDT [facility] - Outpatient PHYSICAL THERAPY DAILY TREATMENT NOTE - OP Date: 10/15/2024 Visit Number: [id number] Patient Name: Seng Cabrera : 1985 Age: 38 y.o. Gender: male Diagnosis: ICD-10-CM ICD-9-CM 1. Acute midline low back pain with left-sided sciatica M54.42 724.2 724.3 Date of Onset/Surgery: 07/30/2024 Referring Provider: Trung Tran PA Insurance: Payor: GENERIC / Plan: GENERIC / Product Type: Indemnity / Patient Identified by: Mauricio Harrison PTA Language: Speaks and understands Luxembourgish as preferred language with no hand woodworking sander required Medications: Current Outpatient Medications on File [...] none Fall risk: No SUBJECTIVE Subjective Report: Patient reports pain across low back Chart Reviewed: Yes Pain: 12/31 he has been doing some lifting that increased symptoms. Still on light duty. TREATMENT INTERVENTION: Treadmill x 6 mins grade 0 speed 2 SKTC 3 x 30 secs Hamstring Stretching HL 3 x 30 secs Pelvic tilts 10 reps x 10 sec Bridging with Hip Abd blue therband 10 reps x 10 secs SL clamshells with blue theraband resistance 5 sec hold x 10 reps HEP 09/29/24 LTR, post PT, resisted hip flexion in supine for TAC 10/13/24- HS, hip flexor, piriformis stretch ASSESSMENT/Response to Treatment Good response, no complaints of pain with added exercises. Educated on tandem standing for WT distribution to help decrease symptoms while at work. Review and demonstrating body mechanics for lifting. Patient Education: Education provided: yes Education Provided To: Patient utilizing Demonstration mode(s) of education Response to Education: Verbal Understanding PLAN POC Development/Review: No Change in the Plan of Care; Participants: Patient Interventions Time Entry: Modalities: Therapeutic procedures: Therapeutic Exercise Time Entry: 30 Total Treatment Time: 30 mins Documentation completed by Mauricio Harrison PTA documented in this encounter Plan of Treatment Upcoming Encounters Date Type Department Care Team (Late st Contact Info) Description 10/22/2024 1:30 PM EDT Treatment [facility] [address] [phone] Mauricio Harrison PTA 10/27/2024 1:30 PM EDT Treatment [facility] [address] [phone] Codi Mcneal, PT 10/29/2024 1:30 PM EDT Treatment [facility] [address] [phone] Mauricio Harrison PTA 11/02/2024 1:30 PM EDT Treatment [facility] [address] [address] Codi Mcneal, PT documented as of this encounter Goals [...] Primary documented in this encounter Care Teams Duster Tender Relationship Specialty Start Date End Date Prakash Holm MD [address] [place] [phone] PCP - General Internal Medicine 05/12/15 documented as of this encounter
--- OUTSIDE RECORDS SUMMARY | 2024-10-20 15:01 | XMS_ITS | Clinical Summary ---
Author Organization [employer] [facility] Address [address] [place] [address] Care Team Providers Care Windows Vmware Engineer Name Role Phone Chuck Caro Primary Care [...] age to complete this topic Care Teams Windows Vmware Engineer Relationship Specialty Start Date End Date Chuck Caro [address] [place] [facility] [address] PCP - General Family Medicine 01/14/20
--- OUTSIDE RECORDS SUMMARY | 2024-10-20 15:01 | XMS_ITS | Clinical Summary ---
Author Organization [facility] Address [address] [place] [address] Care Team Providers Care Fastener Technologist Name Role Phone Unavailable Primary Care Provider [...] 3 - 19 + 3-dose series) 12/12/2002 [id number] (3 - 2024-25 season) 2024 021, 09/28/2020 Imm-Influenza (#1) 2024 04/05/2014, 1 06/24/2012, 04/24/2012 Alcohol and Drug Screen 06/24/2024 Depression Annual Screen 06/24/2024 Imm-DTaP/Tdap/Td (3 - Td or Tdap) 10/04/2027 018, 04/24/2013 Insurance [facility] [employer] PLAN Member Subscriber Plan / Payer (Ef fective 2020-Present) Name:Seng Cabrera Relation to Subscriber:Self Name:Rick Seng Payer ID:[id number] Group ID:Not on file Type:Medicaid Address: [facility] [address] [place] [address]
--- OUTSIDE RECORDS SUMMARY | 2024-10-20 15:01 | XMS_ITS | Clinical Summary ---
Author Organization [facility] Address [address] [place] [address] Phone Care Team Providers Care Validation Architect Name Role Phone Prakash Holm MD Primary Care Provider [phone] Allergies Active Allergy Reactions Criticality Noted Date [...] Assessment & Plan (09/09/2024 2:38 PM EDT): Rick continues with low back pain and radiation [...] Encounters Date Type Department Care Team Description 10/15/2024 12:30 PM EDT Treatment [facility] [address] [phone] Mauricio Harrison PTA Acute midline low back pain with left-sided sciatica (Primary Dx) 10/13/2024 1:30 PM EDT Treatment [facility] [address] [phone] Jerry Tracey, ACTIVITIES OFFICER Acute midline low back pain with left-sided sciatica (Primary Dx) 10/06/2024 1:30 PM EDT Treatment [facility] [address] [phone] Jerry Tracey, ACTIVITIES OFFICER Acute midline low back pain with left-sided sciatica (Primary Dx) 09/29/2024 11:00 AM EDT Evaluation [address] [phone] Codi Mcneal, PT Acute midline low back pain with left-sided sciatica 09/23/[address] [phone] Trung Tran PA 09/21/2024 11:59 AM EDT - 09/21/2024 11:59 PM EDT Hospital Encounter [facility] [address] [place] [address] Acute midline low back pain with left-sided sciatica Discharge Disposition: Home or Self Care 09/17/[address] [phone] Lizeth Bautista [place] Appointment (W/C approval #[id number] for L/Spine MRI faxed over to [facility]. Radiology will contact Roz/ w/appt. ) 09/09/2024 2:00 PM EDT Office Visit [address] [phone] Trung Tran PA Acute midline low back pain with left-sided sciatica (Primary Dx) 09/04/[address] [phone] Lizeth Bautista MA Letter for work 08/31/[address] [phone] Lizeth Bautista MA Advice Only 08/25/2024 3:00 PM EST Consult Neurosurgery [facility] 175 [facility] [address] [place] [address] Trung Tran PA Acute midline low back pain with left-sided sciatica (Primary Dx) 08/25/2024 1:52 PM EST - 08/25/2024 11:59 PM EST Hospital Encounter [facility] Xray [address] [place] [phone] Left-sided low back pain with bilateral sciatica, unspecified chronicity Discharge Disposition: Home or Self Care 08/13/2024 Telephone Neurosurgery [facility] 175 [facility] [address] [place] [address] Manda Saba MA from Last [...] 10/22/2024 1:30 PM EDT Treatment [facility] [address] [phone] Mauricio Harrison, ACTIVITIES OFFICER 10/27/2024 1:30 PM EDT Treatment [facility] [address] [phone] Codi Mcneal, PT 10/29/2024 1:30 PM EDT Treatment [facility] [address] [phone] Mauricio Harrison, ACTIVITIES OFFICER 11/02/2024 1:30 PM EDT Treatment [facility] [address] [phone] Codi Mcneal, PT Health Maintenance Due Date [...] Signed Date: 09/21/2024 14:22 ET Workstation ID: [id number] Transcribed By: Self Edit Transcribed Date: 09/21/2024 [...] cord at the level of the inferior [id number] on the sagittal STIR sequence. This is [...] Signed Date: 09/21/2024 14:22 ET Workstation ID: [id number] Transcribed By: Self Edit Transcribed Date: 09/21/2024 [...] at the L2-3 and L5-S1 levels. Code 66805 -------- FINAL REPORT -------- Dictated By: Quincy Cantu Dictated Date: 08/26/2024 10:39 ET Assigned Physician: Quincy Cantu Reviewed and Electronically Signed By: Quincy Cantu Signed Date: 08/26/2024 10:42 ET Workstation ID: [id number] Transcribed By: Self Edit Transcribed Date: 08/26/2024 [...] degenerative disc disease at the L2-3 and L5-U7tozdab. Code 17443 -------- FINAL REPORT -------- Dictated By: Quincy Cantu Dictated Date: 08/26/2024 10:39 ET Assigned Physician: Quincy Cantu Reviewed and Electronically Signed By: Quincy Cantu Signed Date: 08/26/2024 10:42 ET Workstation ID: [id number] Transcribed By: Self Edit Transcribed Date: 08/26/2024 10:39 ET Result [facility] Trung PETERSEN IMG XR PROCEDURES Final Resul t * HIV Screening (04/05/2014) [facility] HIV Screening ABSTRACTED Result [facility] Provider HEALTH MAINTENANCE Final Result * Hepatitis C Screening (04/05/2014) [facility] Hepatitis C Screening ABSTRACTED Result [facility] Provider HEALTH MAINTENANCE Final Result * Lipid panel (06/08/2013) [facility] LDL/HDL Ratio 3 0 - 4 Triglycerides 107 0 - 150 mg/dL Cholesterol 161 0 - 200 mg/dL HDL 54 >=40 mg/dL LDL Cholesterol 86 0 - 100 mg/dL Blood Venous blood specimen / Unknown Result [facility] Provider LAB BLOOD ORDERABLES Shannon l Result from Last 3 Months or Most Recently Relevant to Health Maintenance Insurance GENERIC GENERIC Care Teams Validation Architect Relationship Specialty Start Date End Date Prakash Holm MD [address] [place] [address] [place] [address] PCP - General Internal Medicine 05/12/15
== END 2024-10-20 13:37 | disposition home or self-care (01) ==
LOC: HO.HMCC 13:03
PROVIDERS: PCP Nurse Practitioner Family; Visit Provider Nurse Practitioner Family
DX: E66.9 Obesity, unspecified (principal); Z68.35 Body mass index [BMI] 35.0-35.9, adult

== ENCOUNTER → 2024-10-20 13:02 | Outpatient (BNVA) | payer OTHER, SELFPAY | PROVIDERS: PCP Nurse Practitioner Family; Visit Provider Nurse Practitioner Family | DX: E66.9 Obesity, unspecified (principal); Z68.35 Body mass index [BMI] 35.0-35.9, adult | CPT/HCPCS: 96127; 99212 ==

== ENCOUNTER 2025-04-17 09:27 | Outpatient (REF) | payer SELFPAY ==
[2025-04-24 16:43] LABS: Testosterone, Free 50.0 pg/mL (35.0-155.0)
== END 2025-04-17 09:28 | disposition home or self-care (01) ==
LOC: HO.HMGCLDS 09:27
PROVIDERS: PCP Nurse Practitioner Family; Visit Provider Nurse Practitioner Family
DX: R79.89 Other specified abnormal findings of blood chemistry (principal)
CPT/HCPCS: 36415; 84402; 84403

== ENCOUNTER 2025-05-08 11:48 | Outpatient (REF) | payer OTHER, SELFPAY ==
[2025-05-08 13:39] LABS: MANUAL DIFF FLAG NO
[2025-05-08 13:44] LABS: Hematocrit 45.7 % (42.0-52.0); Hemoglobin 14.7 g/dl (14.0-18.0); Imm Gran Abs Auto 0.02 X10*3/uL (0.00-0.03); Imm Gran Pct Auto 0.3 % (0.0-0.4); Lymphocytes Absolute Auto 2.6 X10*3/uL (1.2-4.9); Mean Corpuscular HGB Conc 32.2 g/dl (31.0-36.0); Mean Corpuscular Hemoglobin 27.7 pg (27.0-33.0); Mean Corpuscular Volume 86.2 fL (80.0-98.0); NRBC Abs Auto 0.000 X10*3/uL (0.0-0.012); NRBC Pct Auto 0.0 /100WBC (0.0-0.2); Platelet Count 211 X10*3/uL (160-400); Red Blood Count 5.30 X10*6/uL (4.60-5.80); White Blood Count 7.4 X10*3/uL (4.8-10.8)
[2025-05-08 13:49] LABS: Appearance Urine Clear; Glucose Urine UA Negative (Negative); PH 7.0 (5.0-9.0); Specific Gravity - Urine 1.025 (1.005-1.025)
[2025-05-08 13:59] LABS: Alanine Aminotransferase 30 U/L (0-40); Albumin Level 4.3 g/dL (3.5-5.0); Alkaline Phosphatase 61 U/L (39-117); Anion Gap 12 (12-20); Aspartate Amino Transferase 30 U/L (5-37); Blood Urea Nitrogen 13 mg/dL (9-16); Calcium 9.4 mg/dL (8.4-10.2); Carbon Dioxide 23 mmol/L (22-29); Chloride 108 mmol/L (96-108); Cholesterol 161 mg/dL (<200); Estimated Glomerular Filt Rate > 60; HDL Cholesterol 52 mg/dL (>40); Potassium 4.0 mmol/L (3.3-5.1); Sodium 139 mmol/L (135-145); Total Protein 7.0 g/dL (6.5-8.0); Triglycerides 131 mg/dL (<150)
== END 2025-05-08 11:49 | disposition home or self-care (01) ==
LOC: HO.HMGCLDS 11:48
PROVIDERS: PCP Nurse Practitioner Family; Visit Provider Nurse Practitioner Family
DX: E66.9 Obesity, unspecified (principal)
CPT/HCPCS: 36415; 80053; 80061; 81003; 84443; 85025